=== PATIENT | female | born 1955 | race Asian ===

== ENCOUNTER 2017-06-07 20:06 | Emergency (ER) | payer MEDICARE, OTHER ==
[~2017-06-07] VITALS: Ht 165.1 cm; Wt 77.1 kg
[2017-06-07 20:15] VITALS: BP 153/73
[2017-06-07] MEDS ORDERED: ASPIRIN325 MG ORAL (20:26)
[2017-06-07] MEDS ORDERED: ARTIFICIAL TEAR15 ML BOTH EYES (20:26)
[2017-06-07] MEDS ORDERED: BACLOFEN10 MG ORAL (20:26)
[2017-06-07] MEDS ORDERED: SINEMET 25/1001 EA ORAL (20:26)
[2017-06-07] MEDS ORDERED: RISPERDAL1 MG PO (20:35)
[2017-06-07] MEDS ORDERED: MULTIVITAMINS1 EAC2 ORAL (20:35)
[2017-06-07] MEDS ORDERED: MILK OF MA2400 MG/10 ORAL (20:35)
[2017-06-07] MEDS ORDERED: VOLTAREN75 MG PO (20:35)
[2017-06-07] MEDS ORDERED: TESSALON PERLE100 MG ORAL (20:35)
[2017-06-07] MEDS ORDERED: LEXAPRO10 MG ORAL (20:35)
[2017-06-07] MEDS ORDERED: MELATONIN TR 51 EAC1 ORAL (20:35)
[2017-06-07] MEDS ORDERED: METFORMIN HCL500 M1 ORAL (20:35)
[2017-06-07] MEDS ORDERED: TRAMADOL HCL E100 MG ORAL (20:35)
[2017-06-07] MEDS ORDERED: LYRICA75 M1 ORAL (20:35)
[2017-06-07] MEDS ORDERED: DOCUSATE SODIU250 MG ORAL (20:35)
[2017-06-07] MEDS ORDERED: DICLOFENAC POTA50 MG PO (20:35)
[2017-06-07] MEDS ORDERED: BISACODYL5 MG ORAL (20:35)
[2017-06-07] MEDS ORDERED: FAMOTIDINE20 MG ORAL (20:35)
[2017-06-07] MEDS ORDERED: BENZTROPINE ME0.5 MG PO (20:35)
[2017-06-07] MEDS ORDERED: VALIUM5 MG ORAL (20:35)
[2017-06-07] MEDS ORDERED: Morphine Sulfate 4mg/ml Inj IM ONE (20:45)
--- NOTE | 2017-06-07 20:54 | Emergency Room Report ---
History of Present Illness General Chief Complaint: Head Injury Source: Patient, Medical Record Present Illness HPI 62-year-old female, history of schizophrenia, coming from prison, on aspirin, fell on Wednesday in bathroom. Patient did not have LOC. No nausea vomiting since the incident. Patient has ecchymosis to left forehead. Patient stating that she has been taking tramadol without relief. States that today pain is worse. Patient saying that she is allergic to Tylenol and morphine only can get dilaudid. Denies any nausea or vomiting, no weakness of her arms or legs, patient is an ambulatory, patient has been eating and drinking well Allergies: Coded Allergies: ACETAMINOPHEN (Verified Allergy, Unknown, 06/07/17) FLUPHENAZINE (Verified Allergy, Unknown, 06/07/17) HALOPERIDOL (Verified Allergy, Unknown, 06/07/17) IODINE (Verified Allergy, Unknown, 06/07/17) KETOROLAC (Verified Allergy, Unknown, 06/07/17) PENICILLINS (Verified Allergy, Unknown, 06/07/17) SULFAMETHOXAZOLE (Verified Allergy, Unknown, 06/07/17) Patient History Past Medical History: see triage record Past Surgical History: none Pertinent Family History: none Last Menstrual Period: na Now: No Reviewed Nursing Documentation: PMH: Agreed, PSxH: Agreed Nursing Documentation-PMH Hx COPD: Yes Hx Diabetes: Yes Review of Systems All Other Systems: negative except mentioned in HPI Physical Exam Vital Signs Date Time Temp Pulse Resp B/P (MAP) Pulse Ox O2 Delivery O2 Flow Rate FiO2 06/07/17 20:07 99.0 63 20 153/73 93 Room Air Sp02 EP Interpretation: reviewed, normal General Appearance: normal inspection, well appearing, no apparent distress, alert, GCS 15, non-toxic Head: normocephalic - Ecchymosis noted the left forehead, no hematoma Eyes: bilateral eye normal inspection, bilateral eye PERRL, bilateral eye EOMI ENT: normal ENT inspection, normal pharynx, normal voice, moist mucus membranes Neck: normal inspection, full range of motion, supple Respiratory: normal inspection, lungs clear, normal breath sounds, no respiratory distress, no retraction, no wheezing, speaking full sentences, chest symmetrical Cardiovascular #1: normal inspection, regular rate, rhythm, no edema, normal capillary refill Cardiovascular #2: 2+ radial (R), 2+ radial (L) Gastrointestinal: normal inspection, non tender, soft, non-distended, no guarding Musculoskeletal: normal inspection, back normal, normal range of motion, non- tender Neurologic: normal inspection, alert, oriented x3, responsive, plant maintenance technician III-XII nml as tested, motor strength/tone normal, sensory intact, normal gait, speech normal Psychiatric: normal inspection, judgement/insight normal, memory normal Skin: normal inspection, normal color, no rash, warm/dry, well hydrated, normal turgor Medical Decision Making Diagnostic Impression: Primary Impression: Closed head injury ER Course 62-year-old female with closed head injury, fall 3 days ago, now presenting with headache DDX: Likely headache related to fall, there was no LOC, will rule out intracranial hemorrhage although I am having low suspicion Plan: CT head and pain control ER course: Patient has remained stable during ED stay. Awake alert neurologically intact CT Head negative morphine IM given Disposition: Patient is to be discharged back to prison Patient is instructed to follow up with their primary care doctor within 5 days. Strict return precautions discussed with patient such as fever, chills, worsening/severe pain, nausea, vomiting, which may indicate severe illness. Patient verbalizes understanding and agrees with plan. Please note that this Emergency Department Report was dictated using [employer] technician technology software, occasionally this can lead to erroneous entry secondary to interpretation by the dictation equipment CT/MRI/US Diagnostic Results CT/MRI/US Diagnostic Results : Imaging Test Ordered: CT Head Impression Preliminary Findings Only See Final Report For Complete Findings CT HEAD: No acute intracranial process (STAT Rad) Radiologist: Adelina Carmen M.D. Last Vital Signs Date Time Temp Pulse Resp B/P (MAP) Pulse Ox O2 Delivery O2 Flow Rate FiO2 06/07/17 20:07 99.0 63 20 153/73 93 Room Air Disposition: [facility] Condition: Improved Angela Rubi M.D. Jun 07, 2017 20:54
[2017-06-07 22:00] VITALS: BP 148/81
[2017-06-08] VITALS: BP 139/76
[2017-06-08 01:20] VITALS: BP 146/75
--- NOTE | 2017-06-08 09:12 | Diagnostic Imaging Report ---
Indication: PAIN head pain Technique: Continuous helical CT scanning of the head was performed without intravenous contrast material. Axial and coronal 5 mm sections were generated. Radiation dose was minimized using automated exposure control Dose: Total Dose Length Product - DLP [address] Dose Index - CTDIvol(s) 70.38 mGy. Comparison: None Findings: The ventricular system is normal in size and configuration. There is no shift of midline structures. No abnormal extra-axial fluid collections are noted. There is no evidence of intracerebral bleeding. No other abnormal high or low density areas are noted within the brain. The mastoids and sinuses are clear. The calvarium is intact. The orbits are unremarkable. Impression: Normal CT scan of the head without contrast material. This agrees with the preliminary interpretation provided overnight by [facility] teleradiology service. The CT scanner at [facility] is accredited by the [employer] and the scans are performed using protocols designed to limit radiation exposure to as low as reasonably achievable to attain images of sufficient resolution adequate for diagnostic evaluation.
== END 2017-06-08 01:20 ==
LOC: EDBD 20:06 → EMR 20:50
DX: S09.8XXA Other specified injuries of head, initial encounter (principal); S00.83XA Contusion of other part of head, initial encounter; W19.XXXA Unspecified fall, initial encounter; Y92.121 Bathroom in nursing home as the place of occurrence of the external cause; E11.9 Type 2 diabetes mellitus without complications; J44.9 Chronic obstructive pulmonary disease, unspecified; Z88.2 Allergy status to sulfonamides; Z88.0 Allergy status to penicillin; Z88.6 Allergy status to analgesic agent
CPT/HCPCS: 70450; 96372; 99284; J2270

== ENCOUNTER 2017-07-02 11:55 | Inpatient (IN) | payer MEDICARE, OTHER ==
[~2017-07-02] VITALS: Ht 165.1 cm; Wt 76.2 kg
[~2017-07-02 11:55] MED LIST: ARTIFICIAL TEAR15 ML BOTH EYES; ASPIRIN325 MG ORAL; BACLOFEN10 MG ORAL; BENZTROPINE ME0.5 MG PO; BISACODYL5 MG ORAL; DICLOFENAC POTA50 MG PO; DOCUSATE SODIU250 MG ORAL; FAMOTIDINE20 MG ORAL; LEXAPRO10 MG ORAL; LYRICA75 M1 ORAL; MELATONIN TR 51 EAC1 ORAL; METFORMIN HCL500 M1 ORAL; MILK OF MA2400 MG/10 ORAL; MULTIVITAMINS1 EAC2 ORAL; RISPERDAL1 MG PO; SINEMET 25/1001 EA ORAL; TESSALON PERLE100 MG ORAL; TRAMADOL HCL E100 MG ORAL; VALIUM5 MG ORAL; VOLTAREN75 MG PO
[2017-07-02] MEDS ORDERED: LIORESAL20 MG ORAL (12:08)
[2017-07-02] MEDS ORDERED: DICLOFENAC POTA50 MG PO (12:11)
[2017-07-02] MEDS ORDERED: LEXAPRO5 MG ORAL (12:11)
[2017-07-02 12:15] VITALS: BP 130/62
[2017-07-02] MEDS ORDERED: LYRICA100 MG ORAL (12:17)
[2017-07-02] MEDS ORDERED: Sodium Chloride 500ML 500 ML IV ONE (12:17)
[2017-07-02] MEDS ORDERED: ALUM-MAG HYDRO360 ML PO (12:17)
[2017-07-02] MEDS ORDERED: SIMETHICON40 MG/0.2 PO (12:24)
[2017-07-02] MEDS ORDERED: MYLERAN2 MG PO (12:24)
[2017-07-02] MEDS ORDERED: VALIUM5 MG ORAL (12:27)
[2017-07-02] MEDS ORDERED: TRAMADOL HCL100 M2 ORAL (12:27)
[2017-07-02] MEDS ORDERED: Morphine Sulfate 4mg/ml Inj IVP ONE (12:30)
[2017-07-02 12:48] LABS: APPEARANCE,URINE CLEAR; KETONES,URINE NEGATIVE (NEGATIVE); LEUKOCYTE ESTERASE ,URINE NEGATIVE (NEGATIVE); NITRITE,URINE NEGATIVE (NEGATIVE); PH,URINE 6.5 (4.5-8.0); PROTEIN,URINE NEGATIVE (NEGATIVE); UROBILINOGEN,URINE NORMAL MG/DL (0.0-1.0)
[2017-07-02 12:49] LABS: MEAN CORPUSCULAR HEMOGLOBIN 30.3 PG (27.0-31.0); MEAN CORPUSCULAR HGB CONC 33.2 G/DL (32.0-36.0); MEAN CORPUSCULAR VOLUME 91 FL (80-99); MEAN PLATELET VOLUME 8.1 FL (6.5-10.1); PLATELET COUNT 289 K/UL (150-450); RED BLOOD COUNT 4.52 M/UL (4.20-5.40); RED CELL DISTRIBUTION WIDTH 13.6 % (11.6-14.8); WHITE BLOOD COUNT 13.3 K/UL (4.8-10.8)
[2017-07-02 12:59] LABS: ANION GAP 6 mmol/L (5-15); CALCIUM 9.8 MG/DL (8.5-10.1); CARBON DIOXIDE 28 MMOL/L (21-32); CHLORIDE 94 MMOL/L (98-107); CREATININE 0.6 MG/DL (0.55-1.30); GLOMERULAR FILTRATION RATE > 60 mL/min (>60); POTASSIUM 3.9 MMOL/L (3.5-5.1); SODIUM 128 MMOL/L (136-145)
[2017-07-02 13:10] LABS: BACTERIA,URINE OCCASIONAL /HPF; SQUAMOUS EPITHELIAL CELL,UR FEW /LPF (NONE/OCC); WBC,URINE 0-2 /HPF (0 - 2)
[2017-07-02 13:13] LABS: BAND NEUTROPHILS % (MANUAL) 0 % (0-8); BASOPHILS % (MANUAL) 0 % (0-2); EOSINOPHILS % (MANUAL) 2 % (0-3); LYMPHOCYTES % (MANUAL) 12 % (20-45); NEUTROPHILS % (MANUAL) 84 % (45-75); PLATELET ESTIMATE ADEQUATE; TOTAL CELLS COUNTED 100
[2017-07-02 13:14] LABS: ALANINE AMINOTRANSFERASE 8 U/L (12-78); ALBUMIN/GLOBULIN RATIO 1.4 (1.0-2.7); ASPARTATE AMINO TRANSFERASE 12 U/L (15-37); CKMB < 0.5 NG/ML (0.0-3.6); PLATELET MORPHOLOGY NORMAL; TOTAL PROTEIN 6.6 G/DL (6.4-8.2)
[2017-07-02] MEDS ORDERED: DiphenhydrAMINE 50mg/ml Inj IVP ONE (13:15)
--- NOTE | 2017-07-02 13:43 | Diagnostic Imaging Report ---
Indication: Altered mental status Technique: Continuous helical CT scanning of the head was performed without intravenous contrast material. Axial and coronal 5 mm sections were generated. Radiation dose was minimized using automated exposure control Dose: Total Dose Length Product - DLP [address] Dose Index - CTDIvol(s) 70.5 mGy. Comparison: 06/07/17 Findings: The ventricular system is normal in size and configuration. There is no shift of midline structures. No abnormal extra-axial fluid collections are noted. There is no evidence of intracerebral bleeding. No other abnormal high or low density areas are noted within the brain. The mastoids and sinuses are clear. No depressed calvarial fracture. Imaged portions of the orbits are grossly unremarkable. Impression: No evidence of acute intracranial hemorrhage, mass effect or cortical edema. MRI may be obtained for more sensitive evaluation as clinically indicated. The CT scanner at [facility] is accredited by the [employer] and the scans are performed using protocols designed to limit radiation exposure to as low as reasonably achievable to attain images of sufficient resolution adequate for diagnostic evaluation.
--- NOTE | 2017-07-02 14:20 | Emergency Room Report ---
History of Present Illness General Chief Complaint: Generalized Weakness Source: Patient, PMD Present Illness HPI 62-year-old female presents ED for evaluation. Patient coming from [facility]. Per nursing patient has been not eating for several days, has lost weight is feeling weak. Patient states she has generalized pain all over secondary to fall yesterday. Questionable LOC. Pain is throbbing, 8/10, nonradiating. Denies fevers or chills. Denies chest pain shortness of breath. No other aggravating relieving factors. Denies any other associated symptoms Allergies: Coded Allergies: ACETAMINOPHEN (Verified Allergy, Unknown, 06/07/17) FLUPHENAZINE (Verified Allergy, Unknown, 06/07/17) HALOPERIDOL (Verified Allergy, Unknown, 06/07/17) IODINE (Verified Allergy, Unknown, 06/07/17) KETOROLAC (Verified Allergy, Unknown, 06/07/17) PENICILLINS (Verified Allergy, Unknown, 06/07/17) SULFAMETHOXAZOLE (Verified Allergy, Unknown, 06/07/17) Patient History Past Medical History: DM, COPD, psych hx Past Surgical History: none Pertinent Family History: none Social History: Denies: smoking, alcohol use, drug use Now: No Immunizations: UTD Reviewed Nursing Documentation: PMH: Agreed, PSxH: Agreed Nursing Documentation-PMH Hx COPD: Yes Hx Diabetes: Yes Hx Dialysis: No History Of Psychiatric Problem: Yes - schizo,depressive disoder Review of Systems All Other Systems: negative except mentioned in HPI Physical Exam Vital Signs Date Time Temp Pulse Resp B/P (MAP) Pulse Ox O2 Delivery O2 Flow Rate FiO2 07/02/17 11:59 98.1 92 16 130/80 98 Room Air Sp02 EP Interpretation: reviewed, normal General Appearance: no apparent distress, alert, GCS 15, non-toxic Head: normocephalic, atraumatic Eyes: bilateral eye normal inspection, bilateral eye PERRL ENT: hearing grossly normal, normal pharynx, no angioedema, normal voice Neck: full range of motion, supple/symm/no masses Respiratory: chest non-tender, lungs clear, normal breath sounds, speaking full sentences Cardiovascular #1: regular rate, rhythm, no edema Cardiovascular #2: 2+ carotid (R), 2+ carotid (L), 2+ radial (R), 2+ radial (L) , 2+ dorsalis pedis (R), 2+ dorsalis pedis (L) Gastrointestinal: normal bowel sounds, non tender, soft, non-distended, no guarding, no rebound Rectal: deferred Genitourinary: normal inspection, no CVA tenderness Musculoskeletal: back normal, gait/station normal, normal range of motion, non- tender Neurologic: alert, oriented x3, responsive, motor strength/tone normal, sensory intact, speech normal Psychiatric: judgement/insight normal, memory normal, mood/affect normal, no suicidal/homicidal ideation Reflexes: 3+ bicep (R), 3+ bicep (L), 3+ tricep (R), 3+ tricep (L), 3+ knee (R) , 3+ knee (L) Skin: normal color, no rash, warm/dry, well hydrated Lymphatic: no adenopathy Medical Decision Making Diagnostic Impression: Primary Impression: Episode of generalized weakness Additional Impressions: Dehydration FTT (failure to thrive) in adult ER Course Hospital Course 62-year-old female presenting to ED with generalized weakness, unable to care for herself Differential diagnoses include: Pneumonia, UTI, sepsis, dehydration, LA/ unstable angina, failure to thrive Clinical course Patient placed on stretcher. On athletic monitor. After initial history and physical, I ordered labs, IV fluids, EKG, chest x-ray, blood cultures, UA. Labs - no leukocytosis, hb/hct stable, Na 128, trop negative EKG - NSR, RBBB no acute ischemic changes interpreted by me CXR - no acute process CT Head unremarkable Case discussed with Dr Harris and they agreed to admit patient to their service for further care and support I feel this is a highly complex case requiring extensive working including EKG/ Rhythm strip, Xray/CT/US, Blood/urine lab work, repeat exams while in ED, and administration of strong opiates/narcotics for pain control, admission to hospital or close patient follow up. Diagnosis - failure to thrive, weakness, dehydration Patient admitted to floor in serious condition Labs Test 07/02/17 12:25 White Blood Count 13.3 K/UL (4.8-10.8) Red Blood Count 4.52 M/UL (4.20-5.40) Hemoglobin 13.7 G/DL (12.0-16.0) Hematocrit 41.2 % (37.0-47.0) Mean Corpuscular Volume 91 FL (80-99) Mean Corpuscular Hemoglobin 30.3 PG (27.0-31.0) Mean Corpuscular Hemoglobin Concent 33.2 G/DL (32.0-36.0) Red Cell Distribution Width 13.6 % (11.6-14.8) Platelet Count 289 K/UL (150-450) Mean Platelet Volume 8.1 FL (6.5-10.1) Neutrophils (%) (Auto) % (45.0-75.0) Lymphocytes (%) (Auto) % (20.0-45.0) Monocytes (%) (Auto) % (1.0-10.0) Eosinophils (%) (Auto) % (0.0-3.0) Basophils (%) (Auto) % (0.0-2.0) Differential Total Cells Counted 100 Neutrophils % (Manual) 84 % (45-75) Lymphocytes % (Manual) 12 % (20-45) Monocytes % (Manual) 2 % (1-10) Eosinophils % (Manual) 2 % (0-3) Basophils % (Manual) 0 % (0-2) Band Neutrophils 0 % (0-8) Platelet Estimate Adequate Platelet Morphology Normal Red Blood Cell Morphology Normal Urine Color Pale yellow Urine Appearance Clear Urine pH 6.5 (4.5-8.0) Urine Specific [place] 1.010 (1.005-1.035) Urine Protein Negative (NEGATIVE) Urine Glucose (UA) Negative (NEGATIVE) Urine Ketones Negative (NEGATIVE) Urine Occult Blood 1+ (NEGATIVE) Urine Nitrite Negative (NEGATIVE) Urine Bilirubin Negative (NEGATIVE) Urine Urobilinogen Normal MG/DL (0.0-1.0) Urine Leukocyte Esterase Negative (NEGATIVE) Urine RBC 2-4 /HPF (0 - 2) Urine WBC 0-2 /HPF (0 - 2) Urine Squamous Epithelial Cells Few /LPF (NONE/OCC) Urine Bacteria Occasional /HPF (NONE) Sodium Level 128 MMOL/L (136-145) Potassium Level 3.9 MMOL/L (3.5-5.1) Chloride Level 94 MMOL/L (98-107) Carbon Dioxide Level 28 MMOL/L (21-32) Anion Gap 6 mmol/L (5-15) Blood Urea Nitrogen 6 mg/dL (7-18) Creatinine 0.6 MG/DL (0.55-1.30) Estimat Glomerular Filtration Rate > 60 mL/min (>60) Glucose Level 122 MG/DL (74-106) Calcium Level 9.8 MG/DL (8.5-10.1) Total Bilirubin 0.3 MG/DL (0.2-1.0) Aspartate Amino Transf (AST/SGOT) 12 U/L (15-37) Alanine Aminotransferase (ALT/SGPT) 8 U/L (12-78) Alkaline Phosphatase 47 U/L (46-116) Total Creatine Kinase 54 U/L (26-308) Creatine Kinase MB < 0.5 NG/ML (0.0-3.6) Creatine Kinase MB Relative Index Troponin I 0.007 ng/mL (0.000-0.056) Total Protein 6.6 G/DL (6.4-8.2) Albumin 3.9 G/DL (3.4-5.0) Globulin 2.7 g/dL Albumin/Globulin Ratio 1.4 (1.0-2.7) EKG Diagnostic Results Rate: normal Rhythm: NSR ST Segments: other - RBBB ASA given to the pt in ED: No Rhythm Strip Diag. Results EP Interpretation: yes Rhythm: NSR, no PVC's, no ectopy Chest X-Ray Diagnostic Results Chest X-Ray Diagnostic Results : Chest X-Ray Ordered: Yes # of Views/Limited/Complete: 1 View Indication: Other - weakness EP Interpretation: Yes Interpretation: no consolidation, no effusion, no pneumothorax, no acute cardiopulmonary disease Impression: No acute disease Electronically Signed by: Electronically signed by Jonathan Johnson MD CT/MRI/US Diagnostic Results CT/MRI/US Diagnostic Results : Imaging Test Ordered: CT head Impression no acute process Last Vital Signs Date Time Temp Pulse Resp B/P (MAP) Pulse Ox O2 Delivery O2 Flow Rate FiO2 07/02/17 12:15 96.8 72 18 130/62 99 Room Air Status: improved Disposition: ADMITTED INPATIENT Condition: Serious Referrals: CINTHIA APPIAH M.D. (PCP) JONATHAN JOHNSON M.D. Jul 02, 2017 14:20
--- NOTE | 2017-07-02 15:30 | History and Physical ---
History of Present Illness General Date patient seen: Jul 02, 2017 Reason for Hospitalization: Generalized Weakness Present Illness HPI 62-year-old female presents ED for evaluation of not eating for several days, has lost weight is feeling weak. Patient states she has generalized pain all over secondary to fall yesterday. Questionable LOC. Pain is throbbing, 8/10, nonradiating. Denies fevers or chills. Denies chest pain shortness of breath. No other aggravating relieving factors. Denies any other associated symptoms. She has issues with her teeth. c/o dysphagia as well. Allergies: Coded Allergies: ACETAMINOPHEN (Verified Allergy, Unknown, 06/07/17) FLUPHENAZINE (Verified Allergy, Unknown, 06/07/17) HALOPERIDOL (Verified Allergy, Unknown, 06/07/17) IODINE (Verified Allergy, Unknown, 06/07/17) KETOROLAC (Verified Allergy, Unknown, 06/07/17) PENICILLINS (Verified Allergy, Unknown, 06/07/17) SULFAMETHOXAZOLE (Verified Allergy, Unknown, 06/07/17) Medication History Scheduled Baclofen (Baclofen), 10 MG ORAL THREE TIMES A DAY, (Reported) Benzonatate* (Tessalon Perle*), 100 MG ORAL PRN, (Reported) Benztropine Mesylate* (Cogentin*), 1 MG PO BID, (Reported) Bisacodyl* (Dulcolax*), 15 MG ORAL DAILY, (Reported) Diazepam* (Valium*), 5 MG ORAL BID, (Reported) Diclofenac Potassium (Diclofenac Potassium), 50 MG PO THREE TIMES A DAY, ( Reported) Diclofenac Potassium (Diclofenac Potassium), 50 MG PO THREE TIMES A DAY, ( Reported) Docusate Sodium* (Docusate Sodium*), 250 MG ORAL DAILY, (Reported) Escitalopram Oxalate (Lexapro), 5 MG ORAL DAILY, (Reported) Escitalopram Oxalate* (Lexapro*), 5 MG ORAL DAILY, (Reported) Famotidine (Famotidine), 20 MG ORAL DAILY, (Reported) Levodopa/Carbidopa (Carbidopa-Levodopa 25-100 Tab), 1 TAB ORAL TWICE A DAY, ( Reported) Mag Hydrox/Al Hydrox/Simeth (Alum-Mag Hydroxide-Simeth Liq), 30 ML PO EVERY 4 HOURS, (Reported) Magnesium Hydroxide* (Milk Of Magnesia*), 30 ML ORAL DAILY, (Reported) Melatonin (Melatonin Tr 5 Mg Tablet), 1 TAB ORAL BEDTIME, (Reported) Metformin Hcl* (Metformin Hcl*), 500 MG ORAL TWICE A DAY, (Reported) Multivitamins* (Multivitamins*), 1 TAB ORAL DAILY, (Reported) Pregabalin (Lyrica), 100 MG ORAL THREE TIMES A DAY, (Reported) Pregabalin* (Lyrica*), 75 MG ORAL THREE TIMES A DAY, (Reported) Risperidone* (Risperdal*), 1 MG PO DAILY, (Reported) Simethicone (Simethicone), 80 MG PO EVERY 12 HOURS, (Reported) Tramadol Hcl (Tramadol Hcl Er), 100 MG ORAL DAILY, (Reported) Scheduled PRN Aspirin* (Aspirin*), 325 MG ORAL PRN PRN for For Pain, (Reported) Diazepam* (Valium*), 5 MG ORAL TWICE A DAY PRN for ANXIETY, (Reported) Tramadol Hcl (Tramadol Hcl), 100 MG ORAL EVERY 8 HOURS PRN for Breakthrough Pain , (Reported) Miscellaneous Medications Busulfan (Myleran), 30 ML PO, (Reported) Dextran 70/Hypromellose (Artificial Tears Eye Drops*), 1 DROP BOTH EYES, ( Reported) Diclofenac Sodium (Voltaren), Unknown Dose PO, (Reported) Discontinued Medications Baclofen* (Baclofen*), 10 MG ORAL TWICE A DAY, (Reported) Discontinued Reason: Prescription changed Patient History Healthcare decision maker Resuscitation status Advanced Directive on File Past Medical/Surgical History Past Medical/Surgical History: (1) Diabetes (2) Arthritis Review of Systems All Other Systems: negative except mentioned in HPI Physical Exam General Appearance: WD/WN, no apparent distress Lines, tubes and drains: peripheral, central line HEENT: normocephalic, atraumatic Neck: non-tender, normal alignment, supple Respiratory/Chest: chest wall non-tender, lungs clear Breasts: no masses Cardiovascular/Chest: normal rate Abdomen: normal bowel sounds, non tender Genitourinary/Rectal: normal genital exam Skin Exam: normal pigmentation Neurologic: piece marker small arms II-XII grossly normal Last 24 Hour Vital Signs Date Time Temp Pulse Resp B/P (MAP) Pulse Ox O2 Delivery O2 Flow Rate FiO2 07/02/17 14:26 74 17 146/85 99 Room Air 07/02/17 12:15 96.8 72 18 130/62 99 Room Air 07/02/17 11:59 98.1 92 16 130/80 98 Room Air Intake and Output 07/02/17 07/03/17 19:00 07:00 Intake Total 500 ml Balance 500 ml Intake IV Total 500 ml # Voids 1 Laboratory Tests Test 07/02/17 12:25 White Blood Count 13.3 K/UL (4.8-10.8) H Red Blood Count 4.52 M/UL (4.20-5.40) Hemoglobin 13.7 G/DL (12.0-16.0) Hematocrit 41.2 % (37.0-47.0) Mean Corpuscular Volume 91 FL (80-99) Mean Corpuscular Hemoglobin 30.3 PG (27.0-31.0) Mean Corpuscular Hemoglobin Concent 33.2 G/DL (32.0-36.0) Red Cell Distribution Width 13.6 % (11.6-14.8) Platelet Count 289 K/UL (150-450) Mean Platelet Volume 8.1 FL (6.5-10.1) Neutrophils (%) (Auto) % (45.0-75.0) Lymphocytes (%) (Auto) % (20.0-45.0) Monocytes (%) (Auto) % (1.0-10.0) Eosinophils (%) (Auto) % (0.0-3.0) Basophils (%) (Auto) % (0.0-2.0) Differential Total Cells Counted 100 Neutrophils % (Manual) 84 % (45-75) H Lymphocytes % (Manual) 12 % (20-45) L Monocytes % (Manual) 2 % (1-10) Eosinophils % (Manual) 2 % (0-3) Basophils % (Manual) 0 % (0-2) Band Neutrophils 0 % (0-8) Platelet Estimate Adequate Platelet Morphology Normal Red Blood Cell Morphology Normal Urine Color Pale yellow Urine Appearance Clear Urine pH 6.5 (4.5-8.0) Urine Specific [place] 1.010 (1.005-1.035) Urine Protein Negative (NEGATIVE) Urine Glucose (UA) Negative (NEGATIVE) Urine Ketones Negative (NEGATIVE) Urine Occult Blood 1+ (NEGATIVE) H Urine Nitrite Negative (NEGATIVE) Urine Bilirubin Negative (NEGATIVE) Urine Urobilinogen Normal MG/DL (0.0-1.0) Urine Leukocyte Esterase Negative (NEGATIVE) Urine RBC 2-4 /HPF (0 - 2) H Urine WBC 0-2 /HPF (0 - 2) Urine Squamous Epithelial Cells Few /LPF (NONE/OCC) Urine Bacteria Occasional /HPF (NONE) Sodium Level 128 MMOL/L (136-145) L Potassium Level 3.9 MMOL/L (3.5-5.1) Chloride Level 94 MMOL/L (98-107) L Carbon Dioxide Level 28 MMOL/L (21-32) Anion Gap 6 mmol/L (5-15) Blood Urea Nitrogen 6 mg/dL (7-18) L Creatinine 0.6 MG/DL (0.55-1.30) Estimat Glomerular Filtration Rate > 60 mL/min (>60) Glucose Level 122 MG/DL (74-106) H Calcium Level 9.8 MG/DL (8.5-10.1) Total Bilirubin 0.3 MG/DL (0.2-1.0) Aspartate Amino Transf (AST/SGOT) 12 U/L (15-37) L Alanine Aminotransferase (ALT/SGPT) 8 U/L (12-78) L Alkaline Phosphatase 47 U/L (46-116) Total Creatine Kinase 54 U/L (26-308) Creatine Kinase MB < 0.5 NG/ML (0.0-3.6) Creatine Kinase MB Relative Index Troponin I 0.007 ng/mL (0.000-0.056) Total Protein 6.6 G/DL (6.4-8.2) Albumin 3.9 G/DL (3.4-5.0) Globulin 2.7 g/dL Albumin/Globulin Ratio 1.4 (1.0-2.7) Height (Feet): 5 Height (Inches): 5.00 Weight (Pounds): 168 Medications Current Medications Medications (Trade) Dose Ordered Sig/Olu Route PRN Reason Start Time Stop Time Status Last Admin Dose Admin Baclofen (Lioresal) 10 mg THREE TIMES A DAY ORAL 07/02/17 18:00 08/01/17 17:59 Carbidopa/Levodopa (Sinemet 25/100) 1 ea TWICE A DAY ORAL 07/02/17 18:00 08/01/17 17:59 UNV Diazepam (Valium) 5 mg BID ORAL 07/02/17 18:00 07/09/17 17:59 Escitalopram Oxalate (Lexapro) 5 mg DAILY ORAL 07/03/17 09:00 08/02/17 08:59 UNV Pregabalin (Lyrica) 100 mg THREE TIMES A DAY ORAL 07/02/17 18:00 08/01/17 17:59 UNV Risperidone (RisperDAL) 1 mg DAILY ORAL 07/03/17 09:00 08/02/17 08:59 UNV Assessment/Plan Problem List: (1) Dysphagia ICD Codes: R13.10 - Dysphagia, unspecified SNOMED: 20003028, 720395706 (2) Weakness ICD Codes: R53.1 - Weakness SNOMED: 88926590 (3) Diabetes ICD Codes: E11.9 - Type 2 diabetes mellitus without complications SNOMED: 44902647 (4) Arthritis ICD Codes: M19.90 - Unspecified osteoarthritis, unspecified site SNOMED: 7467302 (5) Episode of generalized weakness ICD Codes: R53.1 - Weakness SNOMED: 93169619 Assessment/Plan swallow evaluation GI evaluation symptomatic treatment CHINO HARTMAN Jul 02, 2017 15:30
[2017-07-02 16:00] VITALS: BP 140/66
[2017-07-02] MEDS: NovoLOG Insulin Flexpen SUBQ SCH ×2 (16:29→21:58)
[2017-07-02] MEDS ORDERED: Zolpidem 5mg tab ORAL PRN (16:30)
[2017-07-02] MEDS ORDERED: LORazepam Inj 2mg/ml 1ml IV PRN (16:30)
[2017-07-02] MEDS ORDERED: Miralax 17gm pkt ORAL PRN (16:30)
[2017-07-02] MEDS ORDERED: Mylanta II UD 30ml ORAL PRN (16:30)
[2017-07-02] MEDS: DiphenhydrAMINE 50mg/ml Inj IVP PRN ×2 (16:41→22:09)
[2017-07-02] MEDS: Morphine Sulfate 2mg/ml Inj IVP PRN ×2 (16:42→22:09)
--- NOTE | 2017-07-02 17:19 | GI Initial Consult Note ---
History of Present Illness General Date patient seen: Jul 02, 2017 Time patient seen: 17:11 Reason for Hospitalization: Generalized Weakness Referring physician: CHINO GARCIA Reason for Consultation: FTT/DIARRHEA Present Illness HPI 62-year-old female presents ED for evaluation. Patient coming from [facility]. Per nursing patient has been not eating for several days, has lost weight is feeling weak. Patient states she has generalized pain all over secondary to fall yesterday. Questionable LOC. Pain is throbbing, 8/10, nonradiating. Denies fevers or chills. Denies chest pain shortness of breath. No other aggravating relieving factors. Denies any other associated symptoms GI consulted FTT and c/o of diarrhea. HPI as noted above. Pt seen on floor, awake A&Ox4 NAD with no active s/sx of N/V/D. States her diarrhea has resolved at this time. C/o of abdominal gas pain with epigastric tenderness and nausea without vomiting and Jaw discomfort. Noted to have eaten 75% of her dinner. States she's had a colonoscopy 5+ years ago with polypectomy. She presents today with leukocytosis. Home Meds Reported Medications Diazepam* (VALIUM*) 5 Mg Tablet, 5 MG ORAL TWICE A DAY Y for ANXIETY, #30 TAB 0 Refills 07/02/17 Tramadol Hcl (TRAMADOL HCL) 100 Mg Tab.er.24h, 100 MG ORAL EVERY 8 HOURS Y for Breakthrough Pain, TAB 07/02/17 Simethicone (SIMETHICONE) 40 Mg/0.6 Ml Drops.susp, 80 MG PO EVERY 12 HOURS 07/02/17 Busulfan (MYLERAN) 2 Mg Tablet, 30 ML PO, TAB 07/02/17 Mag Hydrox/Al Hydrox/Simeth (ALUM-MAG HYDROXIDE-SIMETH LIQ) 360 Ml Oral.susp, 30 ML PO EVERY 4 HOURS, ML 07/02/17 Pregabalin (LYRICA) 100 Mg Capsule, 100 MG ORAL THREE TIMES A DAY, CAP 07/02/17 Escitalopram Oxalate (LEXAPRO) 5 Mg Tablet, 5 MG ORAL DAILY, TAB 07/02/17 Diclofenac Potassium (DICLOFENAC POTASSIUM) 50 Mg Tablet, 50 MG PO THREE TIMES A DAY, TAB 07/02/17 Baclofen (Baclofen) 20 Mg Tablet, 10 MG ORAL THREE TIMES A DAY, TAB 07/02/17 Diclofenac Sodium (VOLTAREN) 75 Mg Tablet.dr, PO, TAB 06/07/17 Diazepam* (VALIUM*) 5 Mg Tablet, 5 MG ORAL BID, #30 TAB 0 Refills 06/07/17 Tramadol Hcl (TRAMADOL HCL ER) 100 Mg Tab.er.24h, 100 MG ORAL DAILY, TAB 06/07/17 Benzonatate* (TESSALON PERLE*) 100 Mg Capsule, 100 MG ORAL PRN, PERLE 06/07/17 Risperidone* (RISPERDAL*) 1 Mg Tablet, 1 MG PO DAILY, TAB 06/07/17 Multivitamins* (MULTIVITAMINS*) 1 Each Tablet, 1 TAB ORAL DAILY, TAB 0 Refills 06/07/17 Magnesium Hydroxide* (MILK OF MAGNESIA*) 2,400 Mg/10 Ml Oral.susp, 30 ML ORAL DAILY, ML 06/07/17 Metformin Hcl* (METFORMIN HCL*) 500 Mg Tablet, 500 MG ORAL TWICE A DAY, TAB 06/07/17 Melatonin (MELATONIN TR 5 MG TABLET) 1 Each Tablet.er, 1 TAB ORAL BEDTIME, TAB 06/07/17 Pregabalin* (LYRICA*) 75 Mg Capsule, 75 MG ORAL THREE TIMES A DAY, CAP 06/07/17 Escitalopram Oxalate* (LEXAPRO*) 10 Mg Tablet, 5 MG ORAL DAILY, TAB 06/07/17 Famotidine (FAMOTIDINE) 20 Mg Tablet, 20 MG ORAL DAILY, #30 TAB 0 Refills 06/07/17 Bisacodyl* (DULCOLAX*) 5 Mg Tablet.dr, 15 MG ORAL DAILY, #10 TAB 0 Refills 06/07/17 Docusate Sodium* (DOCUSATE SODIUM*) 250 Mg Capsule, 250 MG ORAL DAILY, CAP 06/07/17 Diclofenac Potassium (DICLOFENAC POTASSIUM) 50 Mg Tablet, 50 MG PO THREE TIMES A DAY, TAB 06/07/17 Benztropine Mesylate* (COGENTIN*) 0.5 Mg Tablet, 1 MG PO BID, TAB 06/07/17 Levodopa/Carbidopa (Carbidopa-Levodopa 25-100 Tab) 1 Each Tablet, 1 TAB ORAL TWICE A DAY, TAB 06/07/17 Aspirin* (ASPIRIN*) 325 Mg Tablet, 325 MG ORAL PRN Y for For Pain, TAB 06/07/17 Dextran 70/Hypromellose (ARTIFICIAL TEARS EYE DROPS*) 15 Ml Drops, 1 DROP BOTH EYES, #15 ML 0 Refills 06/07/17 Discontinued Reported Medications Baclofen* (BACLOFEN*) 10 Mg Tablet, 10 MG ORAL TWICE A DAY, TAB 06/07/17 Med list reviewed/reconciled: Yes Allergies: Coded Allergies: ACETAMINOPHEN (Verified Allergy, Unknown, 06/07/17) FLUPHENAZINE (Verified Allergy, Unknown, 06/07/17) HALOPERIDOL (Verified Allergy, Unknown, 06/07/17) IODINE (Verified Allergy, Unknown, 06/07/17) KETOROLAC (Verified Allergy, Unknown, 06/07/17) PENICILLINS (Verified Allergy, Unknown, 06/07/17) SULFAMETHOXAZOLE (Verified Allergy, Unknown, 06/07/17) Patient History History Provided By: Patient, Medical Record PMH Narrative Past Medical History: DM, COPD, psych hx Past Surgical History: none Pertinent Family History: none Social History: Denies: smoking, alcohol use, drug use Now: No Immunizations: UTD Reviewed Nursing Documentation: PMH: Agreed, PSxH: Agreed Nursing Documentation-PMH Hx COPD: Yes Hx Diabetes: Yes Hx Dialysis: No History Of Psychiatric Problem: Yes - schizo,depressive disorder Social History: Denies: smoking, alcohol use, drug use, other Review of Systems All Other Systems: negative except mentioned in HPI Physical Exam Vital Signs Date Time Temp Pulse Resp B/P (MAP) Pulse Ox O2 Delivery O2 Flow Rate FiO2 07/02/17 11:59 98.1 92 16 130/80 98 Room Air Sp02 EP Interpretation: reviewed, normal Labs Laboratory Tests Test 07/02/17 12:25 White Blood Count 13.3 K/UL (4.8-10.8) H Red Blood Count 4.52 M/UL (4.20-5.40) Hemoglobin 13.7 G/DL (12.0-16.0) Hematocrit 41.2 % (37.0-47.0) Mean Corpuscular Volume 91 FL (80-99) Mean Corpuscular Hemoglobin 30.3 PG (27.0-31.0) Mean Corpuscular Hemoglobin Concent 33.2 G/DL (32.0-36.0) Red Cell Distribution Width 13.6 % (11.6-14.8) Platelet Count 289 K/UL (150-450) Mean Platelet Volume 8.1 FL (6.5-10.1) Neutrophils (%) (Auto) % (45.0-75.0) Lymphocytes (%) (Auto) % (20.0-45.0) Monocytes (%) (Auto) % (1.0-10.0) Eosinophils (%) (Auto) % (0.0-3.0) Basophils (%) (Auto) % (0.0-2.0) Differential Total Cells Counted 100 Neutrophils % (Manual) 84 % (45-75) H Lymphocytes % (Manual) 12 % (20-45) L Monocytes % (Manual) 2 % (1-10) Eosinophils % (Manual) 2 % (0-3) Basophils % (Manual) 0 % (0-2) Band Neutrophils 0 % (0-8) Platelet Estimate Adequate Platelet Morphology Normal Red Blood Cell Morphology Normal Urine Color Pale yellow Urine Appearance Clear Urine pH 6.5 (4.5-8.0) Urine Specific [place] 1.010 (1.005-1.035) Urine Protein Negative (NEGATIVE) Urine Glucose (UA) Negative (NEGATIVE) Urine Ketones Negative (NEGATIVE) Urine Occult Blood 1+ (NEGATIVE) H Urine Nitrite Negative (NEGATIVE) Urine Bilirubin Negative (NEGATIVE) Urine Urobilinogen Normal MG/DL (0.0-1.0) Urine Leukocyte Esterase Negative (NEGATIVE) Urine RBC 2-4 /HPF (0 - 2) H Urine WBC 0-2 /HPF (0 - 2) Urine Squamous Epithelial Cells Few /LPF (NONE/OCC) Urine Bacteria Occasional /HPF (NONE) Sodium Level 128 MMOL/L (136-145) L Potassium Level 3.9 MMOL/L (3.5-5.1) Chloride Level 94 MMOL/L (98-107) L Carbon Dioxide Level 28 MMOL/L (21-32) Anion Gap 6 mmol/L (5-15) Blood Urea Nitrogen 6 mg/dL (7-18) L Creatinine 0.6 MG/DL (0.55-1.30) Estimat Glomerular Filtration Rate > 60 mL/min (>60) Glucose Level 122 MG/DL (74-106) H Calcium Level 9.8 MG/DL (8.5-10.1) Total Bilirubin 0.3 MG/DL (0.2-1.0) Aspartate Amino Transf (AST/SGOT) 12 U/L (15-37) L Alanine Aminotransferase (ALT/SGPT) 8 U/L (12-78) L Alkaline Phosphatase 47 U/L (46-116) Total Creatine Kinase 54 U/L (26-308) Creatine Kinase MB < 0.5 NG/ML (0.0-3.6) Creatine Kinase MB Relative Index Troponin I 0.007 ng/mL (0.000-0.056) Total Protein 6.6 G/DL (6.4-8.2) Albumin 3.9 G/DL (3.4-5.0) Globulin 2.7 g/dL Albumin/Globulin Ratio 1.4 (1.0-2.7) General Appearance: well appearing, no apparent distress, alert Head: normocephalic EENT: PERRL/EOMI, normal ENT inspection Neck: supple Respiratory: normal breath sounds, no respiratory distress Cardiovascular: normal rate Gastrointestinal: normal inspection, non tender, soft, normal bowel sounds, non -distended Rectal: deferred Genitourinary: no CVA tenderness Musculoskeletal: normal inspection, back normal Neurologic: normal inspection, alert, oriented x3, responsive Psychiatric: normal inspection, judgement/insight normal, memory normal Skin: normal inspection, normal color, no rash, warm/dry, palpation normal, well hydrated Lymphatic: normal inspection, no adenopathy Current Medications Current Medications Medications (Trade) Dose Ordered Sig/Olu Route PRN Reason Start Time Stop Time Status Last Admin Dose Admin Al Hydroxide/Mg Hydroxide (Mylanta II) 30 ml Q6H PRN ORAL dyspepsia 07/02/17 16:30 08/01/17 16:29 Baclofen (Lioresal) 10 mg THREE TIMES A DAY ORAL 07/02/17 18:00 08/01/17 17:59 Carbidopa/Levodopa (Sinemet 25/100) 1 ea TWICE A DAY ORAL 07/02/17 18:00 08/01/17 17:59 Dextrose (Dextrose 50%) STAT PRN IV Hypoglycemia 07/02/17 16:30 08/01/17 16:29 Diazepam (Valium) 5 mg BID ORAL 07/02/17 18:00 07/09/17 17:59 Diphenhydramine HCl (Benadryl) 25 mg Q4H PRN IVP Itching 07/02/17 16:30 08/01/17 16:29 07/02/17 16:41 Escitalopram Oxalate (Lexapro) 5 mg DAILY ORAL 07/03/17 09:00 08/02/17 08:59 Heparin Sodium (Porcine) (Heparin 5000 units/ml) 5,000 units EVERY 12 HOURS SUBQ 07/02/17 21:00 08/01/17 20:59 Insulin Aspart (NovoLOG) BEFORE MEALS AND HS SUBQ 07/02/17 17:00 08/01/17 16:59 Lorazepam (Ativan 2mg/ml 1ml) 0.5 mg Q4H PRN IV For Anxiety 07/02/17 16:30 07/09/17 16:29 Morphine Sulfate (Morphine Sulfate) 1 mg Q4H PRN IVP For Moderate to Severe Pain 07/02/17 16:30 07/09/17 16:29 07/02/17 16:42 Ondansetron HCl (Zofran) 4 mg Q6H PRN IVP Nausea & Vomiting 07/02/17 16:30 08/01/17 16:29 Polyethylene Glycol (Miralax) 17 gm HSPRN PRN ORAL Constipation 07/02/17 16:30 08/01/17 16:29 Pregabalin (Lyrica) 100 mg THREE TIMES A DAY ORAL 07/02/17 18:00 08/01/17 17:59 Risperidone (RisperDAL) 1 mg DAILY ORAL 07/03/17 09:00 08/02/17 08:59 Zolpidem Tartrate (Ambien) 5 mg HSPRN PRN ORAL Insomnia 07/02/17 16:30 07/09/17 16:29 GI: Plan Problems: (1) FTT (failure to thrive) in adult (2) Dehydration (3) Episode of generalized weakness Plan POLST noted >> Comfort Tx. No artificial treatment. DNR. symptomatic treatment at this time. push PO, consider marinol if no signs of improvement ADA diet simethicone prn zofran prn collect for stool studies, cdiff if diarrhea persists H2B fu labs Discussed with Dr. Mercedes. Thank you for this patient referral, we will follow. Paulette Shaffer N.P. Jul 02, 2017 17:19
[2017-07-02] MEDS: Lyrica 50mg cap ORAL SCH (17:22)
[2017-07-02] MEDS ORDERED: Simethicone 80mg tab ORAL PRN (17:30)
[2017-07-02] MEDS ORDERED: Sinemet 25/100 tab ORAL SCH (18:00)
--- NOTE | 2017-07-02 18:43 | Neurology Progress Note ---
Objective Physical Exam Last Vital Signs Date Time Temp Pulse Resp B/P (MAP) Pulse Ox O2 Delivery O2 Flow Rate FiO2 07/02/17 17:12 97.0 07/02/17 16:00 55 18 140/66 95 Room Air Laboratory Tests Test 07/02/17 12:25 White Blood Count 13.3 K/UL (4.8-10.8) H Red Blood Count 4.52 M/UL (4.20-5.40) Hemoglobin 13.7 G/DL (12.0-16.0) Hematocrit 41.2 % (37.0-47.0) Mean Corpuscular Volume 91 FL (80-99) Mean Corpuscular Hemoglobin 30.3 PG (27.0-31.0) Mean Corpuscular Hemoglobin Concent 33.2 G/DL (32.0-36.0) Red Cell Distribution Width 13.6 % (11.6-14.8) Platelet Count 289 K/UL (150-450) Mean Platelet Volume 8.1 FL (6.5-10.1) Neutrophils (%) (Auto) % (45.0-75.0) Lymphocytes (%) (Auto) % (20.0-45.0) Monocytes (%) (Auto) % (1.0-10.0) Eosinophils (%) (Auto) % (0.0-3.0) Basophils (%) (Auto) % (0.0-2.0) Differential Total Cells Counted 100 Neutrophils % (Manual) 84 % (45-75) H Lymphocytes % (Manual) 12 % (20-45) L Monocytes % (Manual) 2 % (1-10) Eosinophils % (Manual) 2 % (0-3) Basophils % (Manual) 0 % (0-2) Band Neutrophils 0 % (0-8) Platelet Estimate Adequate Platelet Morphology Normal Red Blood Cell Morphology Normal Urine Color Pale yellow Urine Appearance Clear Urine pH 6.5 (4.5-8.0) Urine Specific [place] 1.010 (1.005-1.035) Urine Protein Negative (NEGATIVE) Urine Glucose (UA) Negative (NEGATIVE) Urine Ketones Negative (NEGATIVE) Urine Occult Blood 1+ (NEGATIVE) H Urine Nitrite Negative (NEGATIVE) Urine Bilirubin Negative (NEGATIVE) Urine Urobilinogen Normal MG/DL (0.0-1.0) Urine Leukocyte Esterase Negative (NEGATIVE) Urine RBC 2-4 /HPF (0 - 2) H Urine WBC 0-2 /HPF (0 - 2) Urine Squamous Epithelial Cells Few /LPF (NONE/OCC) Urine Bacteria Occasional /HPF (NONE) Sodium Level 128 MMOL/L (136-145) L Potassium Level 3.9 MMOL/L (3.5-5.1) Chloride Level 94 MMOL/L (98-107) L Carbon Dioxide Level 28 MMOL/L (21-32) Anion Gap 6 mmol/L (5-15) Blood Urea Nitrogen 6 mg/dL (7-18) L Creatinine 0.6 MG/DL (0.55-1.30) Estimat Glomerular Filtration Rate > 60 mL/min (>60) Glucose Level 122 MG/DL (74-106) H Calcium Level 9.8 MG/DL (8.5-10.1) Total Bilirubin 0.3 MG/DL (0.2-1.0) Aspartate Amino Transf (AST/SGOT) 12 U/L (15-37) L Alanine Aminotransferase (ALT/SGPT) 8 U/L (12-78) L Alkaline Phosphatase 47 U/L (46-116) Total Creatine Kinase 54 U/L (26-308) Creatine Kinase MB < 0.5 NG/ML (0.0-3.6) Creatine Kinase MB Relative Index Troponin I 0.007 ng/mL (0.000-0.056) Total Protein 6.6 G/DL (6.4-8.2) Albumin 3.9 G/DL (3.4-5.0) Globulin 2.7 g/dL Albumin/Globulin Ratio 1.4 (1.0-2.7) Impression/Recommendations Recommendations #[id number] VALORIE GARCIA Jul 02, 2017 18:43
--- NOTE | 2017-07-02 18:58 | Diagnostic Imaging Report ---
Indication: Weakness Technique: XRAY CHEST 1 V Comparison: None Findings: Heart size and mediastinal contours are within normal limits given technique. There is no focal consolidation, pneumothorax or pleural effusion. Osseous structures demonstrate no acute abnormality. Impression: No radiographic evidence of acute cardiopulmonary disease.
[2017-07-02 19:57] VITALS: BP 133/62
--- NOTE | 2017-07-02 20:00 | History and Physical Report ---
DATE OF ADMISSION: 07/02/2017 TIME SEEN: At 12 noon. ATTENDING PHYSICIAN: Selvin Harris D.O. CONSULTANTS: 1. Eduarda Giordano M.D. 2. Santy Arrington M.D. 3. Naldo Grove M.D. 4. Royal Mercedes M.D. CHIEF COMPLAINT: Failure to thrive, increased confusion, general pain, psych history. BRIEF HISTORY: This is a 62-year-old female from [facility] presented with above-mentioned diagnosis, currently slightly anxious in bed, oriented x2 and slight anxious, complaining of general pain. PAST MEDICAL HISTORY: Include encephalopathy, weakness, and diabetes. PAST SURGICAL HISTORY: None. MEDICATIONS: We will obtain list shortly. ALLERGIES: Tylenol, fluphenazine, Haldol, , Ketoralac, penicillin, sulfa, and Bactrim. SOCIAL HISTORY: Positive smoking. Positive alcohol. No intravenous drug abuse. FAMILY HISTORY: Noncontributory. PHYSICAL EXAMINATION: GENERAL: Slightly anxious in the ER gurney, oriented x1, in no acute distress. VITAL SIGNS: Show temperature is 96, pulse 82, respirations 18, and blood pressure 130/62. CARDIOVASCULAR: No murmur. LUNGS: Distant clear. ABDOMEN: Bowel sounds positive. Nontender. Nondistended. EXTREMITIES: No cyanosis, clubbing, or edema. NEUROLOGIC: The patient moves all extremities, but slightly weak. LABORATORY DATA: Pending. ASSESSMENT: 1. Failure to thrive. 2. Altered mental status. 3. General pain. 4. Diabetes. 5. Encephalopathy. PLAN: 1. Continue premedications. 2. OT, PT and dietary evaluation. 3. Blood pressure and blood sugar control. 4. Pain control. 5. Dr. Watts, Dr. Arrington, Dr. Grove, and Dr. Mercedes to consult. 6. We will continue to follow this patient medically. 7. We will check laboratories count as able. Selvin Harris D.O. DR: VICTOR M JOB#: [id number] CC:
[2017-07-02] MEDS: Heparin 5000 units/ml inj SUBQ SCH (21:59)
[2017-07-03] VITALS: BP 103/84
--- NOTE | 2017-07-03 02:45 | Consultation ---
DATE OF CONSULTATION: 07/02/2017 NEUROLOGICAL CONSULTATION CONSULTING PHYSICIAN: Naldo Grove M.D. REQUESTING PHYSICIAN: Selvin Harris D.O. HISTORY OF PRESENT ILLNESS: This is a 62-year-old female, resident of a convalescent facility, who was brought to this hospital after several days of not eating, losing weight, developing significant weakness and generalized aches and pains. On admission, she was describing pain being throbbing at 8/10, but nonradiating. Her vital signs on admission were stable, she was afebrile. Her initial workup included laboratory studies with CBC study, WBC of 13.3, chemistry panel was unremarkable including troponin, but low sodium 128, and urinalysis unremarkable. Her CAT scan of the brain without contrast was repeated and this revealed no evidence of intracranial abnormality. Following admission until present, there were no further changes in mental status. Neurology consult was requested to assess new changes in her mental status. The patient has a history of chronic psychiatric disorder, chronic obstructive pulmonary disease, and gastroesophageal reflux disease. She complains of lack of balance, difficulty ambulation, lack of coordination, diabetes, and chronic anemia. MEDICATIONS: Treatment prior to admission included baclofen, aspirin, Cogentin, , Bisacodyl, Valium 5 mg b.i.d., diclofenac 50 mg t.i.d., Lexapro 5 mg daily, famotidine, levodopa and carbidopa 25/100 b.i.d., melatonin, metformin, Lyrica 100 mg t.i.d., simethicone, and tramadol 100 mg daily. ALLERGIES: Acetaminophen, fluphenazine, haloperidol, iodine, ketorolac, penicillin, and sulfa drugs. SOCIAL HISTORY: Lives in a nursing facility. Denies use of alcohol or drug abuse. Nonsmoker. The patient was seen at this facility one month ago for head trauma without loss of consciousness. FAMILY HISTORY: Noncontributory. REVIEW OF SYMPTOMS: The patient found to be asleep, but arousable. She was able to provide with limited history indicating that she has a significant tooth pain, occasional sharp shooting pain in the neck area, chest, upper back, and numbness and tingling in her rodriguez feet, and unsteady gait secondary to weakness, she is using walker. Denies chest pain or palpitations. No respiratory difficulties. No abdominal pain or discomfort. Does not appear depressed or anxious. PHYSICAL EXAMINATION: GENERAL: A well-developed and well-nourished female, not in acute distress, lying comfortably in bed, drowsy. VITAL SIGNS: Stable, heart rate fluctuating down to 55, blood pressure 140/66, and temperature 97.1. HEENT: Head normocephalic. There is no evidence of injuries. Eyes, ears, and throat are clear. NECK: Supple. No meningeal signs. MUSCULOSKELETAL: Unremarkable. There are no deformities. Peripheral pulses 1+ and symmetric. MENTAL STATUS: The patient is arousable. When alert, she was able to communicate. She was able to follow commands. No aphasia and no apraxia noted. CRANIAL NERVE II: Pupils both responding to light and accommodation. Extraocular movements intact. No nystagmus. CRANIAL NERVE V: Normal corneal responses. CRANIAL NERVE VII: No facial asymmetry. CRANIAL NERVE VIII: Normal hearing. CRANIAL NERVES IX THROUGH XII: Tongue is in midline. Symmetric palate elevation. MOTOR EXAMINATION: Normal muscle tone. Able to lift arms and legs against the gravity. No bradykinesia. No cogwheel rigidity noted. Deep tendon reflexes 4+ bilaterally and symmetric. Plantar response is flexor. SENSORY EXAMINATION: Normal to pin stimulation. Reduced proprioception. Gait slow, somewhat wobbly, and unsteady. IMPRESSION: 1. Generalized aches and pains, poorly defined, rule out fibromyalgia. 2. Diabetes type 2 with mild diabetic polyneuropathy. 3. Chronic schizoaffective disorder. 4. Abnormal gait contributed by pharmacy, diabetic neuropathy, and deconditioning. RECOMMENDATIONS: Hold all unessential treatment. No clear evidence of Parkinson disease, stop Sinemet. Hold use of morphine. Reduce Valium. Get PT/OT for mobility protocol. Continue with Lyrica 300 mg daily for pain management. Laboratory work to include collagen vascular profile, liver profile, and ammonia level. Get a Psychiatry assessment to adjust the patient's antipsychotic treatment. Thank you for allowing me to see this interesting patient in neurological consultation. Naldo Grove M.D. DR: GARETH JOB#: [id number] CC:
[2017-07-03 04:00] VITALS: BP 124/79
[2017-07-03] MEDS: NovoLOG Insulin Flexpen SUBQ SCH ×4 (06:30→20:51)
[2017-07-03 07:18] LABS: BASOPHILS % (AUTO) 0.8 % (0.0-2.0); EOSINOPHILS % (AUTO) 1.2 % (0.0-3.0); LYMPHOCYTES % (AUTO) 49.8 % (20.0-45.0); MEAN CORPUSCULAR HEMOGLOBIN 30.7 PG (27.0-31.0); MEAN CORPUSCULAR HGB CONC 33.4 G/DL (32.0-36.0); MEAN CORPUSCULAR VOLUME 92 FL (80-99); MEAN PLATELET VOLUME 8.2 FL (6.5-10.1); MONOCYTES % (AUTO) 9.2 % (1.0-10.0); PLATELET COUNT 289 K/UL (150-450); RED CELL DISTRIBUTION WIDTH 13.7 % (11.6-14.8); WHITE BLOOD COUNT 5.9 K/UL (4.8-10.8)
[2017-07-03 07:32] LABS: ALANINE AMINOTRANSFERASE 10 U/L (12-78); ALBUMIN/GLOBULIN RATIO 1.2 (1.0-2.7); ANION GAP 7 mmol/L (5-15); ASPARTATE AMINO TRANSFERASE 11 U/L (15-37); CARBON DIOXIDE 29 MMOL/L (21-32); CHLORIDE 104 MMOL/L (98-107); CHOLESTEROL 187 MG/DL (< 200); CHOLESTEROL/HDL RATIO 3.3 (3.3-4.4); CREATININE 0.6 MG/DL (0.55-1.30); GLOMERULAR FILTRATION RATE > 60 mL/min (>60); POTASSIUM 3.7 MMOL/L (3.5-5.1); SODIUM 140 MMOL/L (136-145); TOTAL PROTEIN 6.4 G/DL (6.4-8.2)
[2017-07-03 08:00] VITALS: BP 129/64
--- NOTE | 2017-07-03 08:16 | General Progress Note ---
Assessment/Plan Problem List: (1) Arthritis ICD Codes: M19.90 - Unspecified osteoarthritis, unspecified site SNOMED: 0667455 (2) FTT (failure to thrive) in adult ICD Codes: R62.7 - Adult failure to thrive SNOMED: 457067581 (3) Dehydration ICD Codes: E86.0 - Dehydration SNOMED: 65673091 Assessment/Plan recommend ortho eval for hip pain not a candidate for PEG will fu Subjective ROS Limited/Unobtainable: Yes Allergies: Coded Allergies: ACETAMINOPHEN (Verified Allergy, Unknown, 06/07/17) FLUPHENAZINE (Verified Allergy, Unknown, 06/07/17) HALOPERIDOL (Verified Allergy, Unknown, 06/07/17) IODINE (Verified Allergy, Unknown, 06/07/17) KETOROLAC (Verified Allergy, Unknown, 06/07/17) PENICILLINS (Verified Allergy, Unknown, 06/07/17) SULFAMETHOXAZOLE (Verified Allergy, Unknown, 06/07/17) Subjective c/o right hip pain Objective Last 24 Hour Vital Signs Date Time Temp Pulse Resp B/P (MAP) Pulse Ox O2 Delivery O2 Flow Rate FiO2 07/03/17 04:00 98.9 69 20 124/79 96 Room Air 07/03/17 00:00 98.1 57 20 103/84 94 07/02/17 22:39 98.2 07/02/17 19:57 98.2 60 18 133/62 96 Room Air 07/02/17 16:00 97.1 55 18 140/66 95 Room Air 07/02/17 14:26 74 17 146/85 99 Room Air 07/02/17 12:15 96.8 72 18 130/62 99 Room Air 07/02/17 11:59 98.1 92 16 130/80 98 Room Air Laboratory Tests 07/02/17 12:25: White Blood Count 13.3H, Red Blood Count 4.52, Hemoglobin 13.7, Hematocrit 41.2 , Mean Corpuscular Volume 91, Mean Corpuscular Hemoglobin 30.3, Mean Corpuscular Hemoglobin Concent 33.2, Red Cell Distribution Width 13.6, Platelet Count 289, Mean Platelet Volume 8.1, Neutrophils (%) (Auto) , Lymphocytes (%) ( Auto) , Monocytes (%) (Auto) , Eosinophils (%) (Auto) , Basophils (%) (Auto) , Differential Total Cells Counted 100, Neutrophils % (Manual) 84H, Lymphocytes % (Manual) 12L, Monocytes % (Manual) 2, Eosinophils % (Manual) 2, Basophils % ( Manual) 0, Band Neutrophils 0, Platelet Estimate Adequate, Platelet Morphology Normal, Red Blood Cell Morphology Normal, Urine Color Pale yellow, Urine Appearance Clear, Urine pH 6.5, Urine Specific [place] 1.010, Urine Protein Negative, Urine Glucose (UA) Negative, Urine Ketones Negative, Urine Occult Blood 1+H, Urine Nitrite Negative, Urine Bilirubin Negative, Urine Urobilinogen Normal, Urine Leukocyte Esterase Negative, Urine RBC 2-4H, Urine WBC 0-2, Urine Squamous Epithelial Cells Few, Urine Bacteria Occasional, Sodium Level 128L, Potassium Level 3.9, Chloride Level 94L, Carbon Dioxide Level 28, Anion Gap 6, Blood Urea Nitrogen 6L, Creatinine 0.6, Estimat Glomerular Filtration Rate > 60 , Glucose Level 122H, Calcium Level 9.8, Total Bilirubin 0.3, Aspartate Amino Transf (AST/SGOT) 12L, Alanine Aminotransferase (ALT/SGPT) 8L, Alkaline Phosphatase 47, Total Creatine Kinase 54, Creatine Kinase MB < 0.5, Creatine Kinase MB Relative Index , Troponin I 0.007, Total Protein 6.6, Albumin 3.9, Globulin 2.7, Albumin/Globulin Ratio 1.4 07/03/17 06:22: White Blood Count 5.9#, Red Blood Count 4.30, Hemoglobin 13.2, Hematocrit 39.6, Mean Corpuscular Volume 92, Mean Corpuscular Hemoglobin 30.7, Mean Corpuscular Hemoglobin Concent 33.4, Red Cell Distribution Width 13.7, Platelet Count 289, Mean Platelet Volume 8.2, Neutrophils (%) (Auto) 39.0L, Lymphocytes (%) (Auto) 49.8H, Monocytes (%) (Auto) 9.2, Eosinophils (%) (Auto) 1.2, Basophils (%) (Auto ) 0.8, Sodium Level 140#, Potassium Level 3.7, Chloride Level 104, Carbon Dioxide Level 29, Anion Gap 7, Blood Urea Nitrogen 8, Creatinine 0.6, Estimat Glomerular Filtration Rate > 60, Glucose Level 87, Calcium Level 9.0, Total Bilirubin 0.2, Aspartate Amino Transf (AST/SGOT) 11L, Alanine Aminotransferase ( ALT/SGPT) 10L, Alkaline Phosphatase 42L, Total Protein 6.4, Albumin 3.5, Globulin 2.9, Albumin/Globulin Ratio 1.2, Triglycerides Level 89, Cholesterol Level 187, LDL Cholesterol 106H, HDL Cholesterol 56, Cholesterol/HDL Ratio 3.3 Height (Feet): 5 Height (Inches): 5.00 Weight (Pounds): 168 General Appearance: alert EENT: normal ENT inspection Neck: supple Cardiovascular: normal rate Respiratory/Chest: lungs clear Abdomen: normal bowel sounds, non tender, soft Extremities: non-tender ANALI MEDINA Jul 03, 2017 08:16
[2017-07-03] MEDS: Lyrica 50mg cap ORAL SCH ×3 (08:31→18:36)
[2017-07-03] MEDS: Morphine Sulfate 2mg/ml Inj IVP PRN ×4 (08:32→22:54)
[2017-07-03] MEDS: DiphenhydrAMINE 50mg/ml Inj IVP PRN ×4 (08:32→22:53)
[2017-07-03] MEDS: Heparin 5000 units/ml inj SUBQ SCH ×2 (08:34→20:22)
--- NOTE | 2017-07-03 09:17 | General Progress Note ---
Assessment/Plan Problem List: (1) Diabetes ICD Codes: E11.9 - Type 2 diabetes mellitus without complications SNOMED: 77215516 (2) Leukocytosis ICD Codes: D72.829 - Elevated white blood cell count, unspecified SNOMED: 711586458, 156694461 (3) Weakness ICD Codes: R53.1 - Weakness SNOMED: 07764203 (4) Dehydration ICD Codes: E86.0 - Dehydration SNOMED: 32393091 (5) FTT (failure to thrive) in adult ICD Codes: R62.7 - Adult failure to thrive SNOMED: 456622903 (6) Episode of generalized weakness ICD Codes: R53.1 - Weakness SNOMED: 80510433 (7) Arthritis ICD Codes: M19.90 - Unspecified osteoarthritis, unspecified site SNOMED: 8602756 Status: stable, progressing, tolerating diet Assessment/Plan ot pt diet abx cbc bmp am id eval Subjective Constitutional: Reports: weakness Allergies: Coded Allergies: ACETAMINOPHEN (Verified Allergy, Unknown, 06/07/17) FLUPHENAZINE (Verified Allergy, Unknown, 06/07/17) HALOPERIDOL (Verified Allergy, Unknown, 06/07/17) IODINE (Verified Allergy, Unknown, 06/07/17) KETOROLAC (Verified Allergy, Unknown, 06/07/17) PENICILLINS (Verified Allergy, Unknown, 06/07/17) SULFAMETHOXAZOLE (Verified Allergy, Unknown, 06/07/17) All Systems: reviewed and negative except above Subjective sleepy calm Objective Last 24 Hour Vital Signs Date Time Temp Pulse Resp B/P (MAP) Pulse Ox O2 Delivery O2 Flow Rate FiO2 07/03/17 08:00 98.1 61 20 129/64 95 Room Air 07/03/17 04:00 98.9 69 20 124/79 96 Room Air 07/03/17 00:00 98.1 57 20 103/84 94 07/02/17 22:39 98.2 07/02/17 19:57 98.2 60 18 133/62 96 Room Air 07/02/17 16:00 97.1 55 18 140/66 95 Room Air 07/02/17 14:26 74 17 146/85 99 Room Air 07/02/17 12:15 96.8 72 18 130/62 99 Room Air 07/02/17 11:59 98.1 92 16 130/80 98 Room Air Laboratory Tests 07/02/17 12:25: White Blood Count 13.3H, Red Blood Count 4.52, Hemoglobin 13.7, Hematocrit 41.2 , Mean Corpuscular Volume 91, Mean Corpuscular Hemoglobin 30.3, Mean Corpuscular Hemoglobin Concent 33.2, Red Cell Distribution Width 13.6, Platelet Count 289, Mean Platelet Volume 8.1, Neutrophils (%) (Auto) , Lymphocytes (%) ( Auto) , Monocytes (%) (Auto) , Eosinophils (%) (Auto) , Basophils (%) (Auto) , Differential Total Cells Counted 100, Neutrophils % (Manual) 84H, Lymphocytes % (Manual) 12L, Monocytes % (Manual) 2, Eosinophils % (Manual) 2, Basophils % ( Manual) 0, Band Neutrophils 0, Platelet Estimate Adequate, Platelet Morphology Normal, Red Blood Cell Morphology Normal, Urine Color Pale yellow, Urine Appearance Clear, Urine pH 6.5, Urine Specific [place] 1.010, Urine Protein Negative, Urine Glucose (UA) Negative, Urine Ketones Negative, Urine Occult Blood 1+H, Urine Nitrite Negative, Urine Bilirubin Negative, Urine Urobilinogen Normal, Urine Leukocyte Esterase Negative, Urine RBC 2-4H, Urine WBC 0-2, Urine Squamous Epithelial Cells Few, Urine Bacteria Occasional, Sodium Level 128L, Potassium Level 3.9, Chloride Level 94L, Carbon Dioxide Level 28, Anion Gap 6, Blood Urea Nitrogen 6L, Creatinine 0.6, Estimat Glomerular Filtration Rate > 60 , Glucose Level 122H, Calcium Level 9.8, Total Bilirubin 0.3, Aspartate Amino Transf (AST/SGOT) 12L, Alanine Aminotransferase (ALT/SGPT) 8L, Alkaline Phosphatase 47, Total Creatine Kinase 54, Creatine Kinase MB < 0.5, Creatine Kinase MB Relative Index , Troponin I 0.007, Total Protein 6.6, Albumin 3.9, Globulin 2.7, Albumin/Globulin Ratio 1.4 07/03/17 06:22: White Blood Count 5.9#, Red Blood Count 4.30, Hemoglobin 13.2, Hematocrit 39.6, Mean Corpuscular Volume 92, Mean Corpuscular Hemoglobin 30.7, Mean Corpuscular Hemoglobin Concent 33.4, Red Cell Distribution Width 13.7, Platelet Count 289, Mean Platelet Volume 8.2, Neutrophils (%) (Auto) 39.0L, Lymphocytes (%) (Auto) 49.8H, Monocytes (%) (Auto) 9.2, Eosinophils (%) (Auto) 1.2, Basophils (%) (Auto ) 0.8, Sodium Level 140#, Potassium Level 3.7, Chloride Level 104, Carbon Dioxide Level 29, Anion Gap 7, Blood Urea Nitrogen 8, Creatinine 0.6, Estimat Glomerular Filtration Rate > 60, Glucose Level 87, Calcium Level 9.0, Total Bilirubin 0.2, Aspartate Amino Transf (AST/SGOT) 11L, Alanine Aminotransferase ( ALT/SGPT) 10L, Alkaline Phosphatase 42L, Total Protein 6.4, Albumin 3.5, Globulin 2.9, Albumin/Globulin Ratio 1.2, Triglycerides Level 89, Cholesterol Level 187, LDL Cholesterol 106H, HDL Cholesterol 56, Cholesterol/HDL Ratio 3.3 Height (Feet): 5 Height (Inches): 5.00 Weight (Pounds): 168 General Appearance: lethargic EENT: normal ENT inspection Neck: normal alignment Cardiovascular: normal peripheral pulses, normal rate, regular rhythm Respiratory/Chest: chest wall non-tender, lungs clear, normal breath sounds Abdomen: normal bowel sounds, non tender, soft Extremities: normal inspection Edema: no edema noted Arm (L), no edema noted Arm (R), no edema noted Leg (L), no edema noted Leg (R), no edema noted Pedal (L), no edema noted Pedal (R), no edema noted Generalized Neurologic: motor weakness Skin: normal pigmentation, warm/dry AYLA HOPKINS Jul 03, 2017 09:17
[2017-07-03] MEDS: Escitalopram Oxalate 5mg tab ORAL SCH (10:35)
[2017-07-03 12:00] VITALS: BP 131/55
--- NOTE | 2017-07-03 16:15 | Consultation ---
DATE OF CONSULTATION: 07/03/2017 INFECTIOUS DISEASES CONSULTATION CONSULTING PHYSICIAN: Lynne Bautista M.D. REFERRING PHYSICIAN: Selvin Harris D.O. This consultation has been done on behalf of Dr. Ayush Rao. REASON FOR CONSULTATION: Encephalopathy. HISTORY OF PRESENTING ILLNESS: This is a 62-year-old lady with history of diabetes, encephalopathy who came in with anxiety and pain. She was seen in [facility] and an Infectious Disease consultation has been obtained for antibiotics. She was also found to have leukocytosis. PAST MEDICAL HISTORY: 1. History of encephalopathy. 2. History of diabetes. 3. History of COPD. 4. History of schizo-depressive disorder. SOCIAL HISTORY: Unknown. FAMILY HISTORY: Unknown. REVIEW OF SYSTEMS: Unable to obtain currently. MEDICATIONS: As an inpatient, she is on Lexapro, Risperdal, subcutaneous heparin, famotidine, diazepam, Lyrica, simethicone, Insulin, morphine, MiraLAX, Zofran, Ambien, lorazepam, Mylanta, and Benadryl. ALLERGIES: 1. Acetomenophen. 2. Fluphenazine. 3. Haloperidol. 4. Iodine. 5. Ketorolac. 6. Penicillin. 7. Bactrim. PHYSICAL EXAMINATION: VITAL SIGNS: Temperature of 98.1, T-max of 98.9, pulse of 61, respiratory rate 20, blood pressure 129/64, and O2 saturation of 95%. HEENT: Pupils equally reactive to light and accommodation. Mouth appears clean without thrush. NECK: Supple. No adenopathy. No JVD. CARDIOVASCULAR: Regular rate and rhythm. No murmurs. LUNGS: Clear to auscultation bilaterally. No crackles. No wheezes. ABDOMEN: Soft and nontender. No organomegaly. EXTREMITIES: No cyanosis, no clubbing, no edema. LABORATORY DATA: White count of 13.3 yesterday, white count of 5.9 today, hemoglobin 13.2, hematocrit 39.6, MCV 92, platelet count of 289, neutrophils of 39%. Sodium 140, potassium 3.7, chloride 104, bicarbonate 29, BUN 8, creatinine 0.6, glucose 87, calcium 9, total bilirubin 0.2. AST 11, ALT 10, and alkaline phosphatase 42. CK of 54, CK-MB less than 0.5. Total protein 6.4, albumin 3.5, cholesterol of 187. UA showing 0 to 2 white cells. Chest x-ray, it was unremarkable. CT head showing no hemorrhage, mass effect, or edema. ASSESSMENT: 1. This is a 62-year-old lady with history of encephalopathy and diabetes who comes in with leukocytosis, which has since resolved. 2. Dehydration. 3. Diabetes. PLAN: 1. Continue off antibiotics for now. 2. We will follow the patient clinically. I would like to thank Dr. Selvin Harris for this consultation. Lynne Bautista M.D. DR: ERICK JOB#: [id number] CC: Selvin Harris D.O.
[2017-07-03 16:46] VITALS: BP 141/63
--- NOTE | 2017-07-03 17:06 | Pulmonology Progress Note ---
Assessment/Plan Problems: (1) Dysphagia (2) Weakness (3) Diabetes (4) Arthritis (5) Episode of generalized weakness Assessment/Plan down grade diet to full liquid GI following barium swallow symptomatic treatment Subjective ROS Limited/Unobtainable: No Interval Events: can't eat now Allergies: Coded Allergies: ACETAMINOPHEN (Verified Allergy, Unknown, 06/07/17) FLUPHENAZINE (Verified Allergy, Unknown, 06/07/17) HALOPERIDOL (Verified Allergy, Unknown, 06/07/17) IODINE (Verified Allergy, Unknown, 06/07/17) KETOROLAC (Verified Allergy, Unknown, 06/07/17) PENICILLINS (Verified Allergy, Unknown, 06/07/17) SULFAMETHOXAZOLE (Verified Allergy, Unknown, 06/07/17) Objective Last 24 Hour Vital Signs Date Time Temp Pulse Resp B/P (MAP) Pulse Ox O2 Delivery O2 Flow Rate FiO2 07/03/17 16:46 97.9 62 20 141/63 95 Room Air 07/03/17 12:00 98.1 56 18 131/55 95 Room Air 07/03/17 08:00 98.1 61 20 129/64 95 Room Air 07/03/17 04:00 98.9 69 20 124/79 96 Room Air 07/03/17 00:00 98.1 57 20 103/84 94 07/02/17 22:39 98.2 07/02/17 19:57 98.2 60 18 133/62 96 Room Air General Appearance: WD/WN HEENT: normocephalic, atraumatic Respiratory/Chest: chest wall non-tender, lungs clear Breasts: no masses Cardiovascular: normal peripheral pulses Abdomen: normal bowel sounds, soft, non tender Genitourinary: normal external genitalia Extremities: no clubbing 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, abnormal gait Laboratory Tests 07/03/17 06:22: White Blood Count 5.9#, Red Blood Count 4.30, Hemoglobin 13.2, Hematocrit 39.6, Mean Corpuscular Volume 92, Mean Corpuscular Hemoglobin 30.7, Mean Corpuscular Hemoglobin Concent 33.4, Red Cell Distribution Width 13.7, Platelet Count 289, Mean Platelet Volume 8.2, Neutrophils (%) (Auto) 39.0L, Lymphocytes (%) (Auto) 49.8H, Monocytes (%) (Auto) 9.2, Eosinophils (%) (Auto) 1.2, Basophils (%) (Auto ) 0.8, Sodium Level 140#, Potassium Level 3.7, Chloride Level 104, Carbon Dioxide Level 29, Anion Gap 7, Blood Urea Nitrogen 8, Creatinine 0.6, Estimat Glomerular Filtration Rate > 60, Glucose Level 87, Calcium Level 9.0, Total Bilirubin 0.2, Aspartate Amino Transf (AST/SGOT) 11L, Alanine Aminotransferase ( ALT/SGPT) 10L, Alkaline Phosphatase 42L, Total Protein 6.4, Albumin 3.5, Globulin 2.9, Albumin/Globulin Ratio 1.2, Triglycerides Level 89, Cholesterol Level 187, LDL Cholesterol 106H, HDL Cholesterol 56, Cholesterol/HDL Ratio 3.3 Current Medications Medications (Trade) Dose Ordered Sig/Olu Route PRN Reason Start Time Stop Time Status Last Admin Dose Admin Al Hydroxide/Mg Hydroxide (Mylanta II) 30 ml Q6H PRN ORAL dyspepsia 07/02/17 16:30 08/01/17 16:29 Dextrose (Dextrose 50%) STAT PRN IV Hypoglycemia 07/02/17 16:30 08/01/17 16:29 Diazepam (Valium) 5 mg BID ORAL 07/02/17 18:00 07/09/17 17:59 07/03/17 08:31 Diphenhydramine HCl (Benadryl) 25 mg Q4H PRN IVP Itching 07/02/17 16:30 08/01/17 16:29 07/03/17 14:03 Escitalopram Oxalate (Lexapro) 5 mg DAILY ORAL 07/03/17 09:00 08/02/17 08:59 07/03/17 10:35 Famotidine (Pepcid I.v.) 20 mg Q12HR IVP 07/02/17 21:00 08/01/17 20:59 07/03/17 10:36 Heparin Sodium (Porcine) (Heparin 5000 units/ml) 5,000 units EVERY 12 HOURS SUBQ 07/02/17 21:00 08/01/17 20:59 07/03/17 08:34 Insulin Aspart (NovoLOG) BEFORE MEALS AND HS SUBQ 07/02/17 17:00 08/01/17 16:59 07/02/17 21:58 Lorazepam (Ativan 2mg/ml 1ml) 0.5 mg Q4H PRN IV For Anxiety 07/02/17 16:30 07/09/17 16:29 Morphine Sulfate (Morphine Sulfate) 1 mg Q4H PRN IVP For Moderate to Severe Pain 07/02/17 16:30 07/09/17 16:29 07/03/17 14:03 Ondansetron HCl (Zofran) 4 mg Q6H PRN IVP Nausea & Vomiting 07/02/17 16:30 08/01/17 16:29 Polyethylene Glycol (Miralax) 17 gm HSPRN PRN ORAL Constipation 07/02/17 16:30 08/01/17 16:29 Pregabalin (Lyrica) 100 mg THREE TIMES A DAY ORAL 07/02/17 18:00 08/01/17 17:59 07/03/17 14:05 Risperidone (RisperDAL) 1 mg DAILY ORAL 07/03/17 09:00 08/02/17 08:59 07/03/17 08:31 Simethicone (Mylicon) 80 mg QIDPRN PRN ORAL GAS PAIN 07/02/17 17:30 08/01/17 17:29 Zolpidem Tartrate (Ambien) 5 mg HSPRN PRN ORAL Insomnia 07/02/17 16:30 07/09/17 16:29 CHINO HARTMAN Jul 03, 2017 17:05
[2017-07-03] MEDS ORDERED: 1/2 NS 1000ml IV ONE (17:25)
[2017-07-03 20:00] VITALS: BP 132/63
[2017-07-04 00:41] VITALS: BP 137/66
[2017-07-04] MEDS: DiphenhydrAMINE 50mg/ml Inj IVP PRN ×4 (05:17→18:45)
[2017-07-04] MEDS: Morphine Sulfate 2mg/ml Inj IVP PRN ×4 (05:17→18:46)
[2017-07-04] MEDS: NovoLOG Insulin Flexpen SUBQ SCH ×4 (06:23→20:32)
--- NOTE | 2017-07-04 07:39 | General Progress Note ---
Assessment/Plan Problem List: (1) Arthritis ICD Codes: M19.90 - Unspecified osteoarthritis, unspecified site SNOMED: 2654077 (2) FTT (failure to thrive) in adult ICD Codes: R62.7 - Adult failure to thrive SNOMED: 776923369 (3) Dehydration ICD Codes: E86.0 - Dehydration SNOMED: 15538283 Assessment/Plan recommend ortho eval for hip pain not a candidate for PEG fu barium swallow ordered by pulm Subjective ROS Limited/Unobtainable: Yes Allergies: Coded Allergies: ACETAMINOPHEN (Verified Allergy, Unknown, 06/07/17) FLUPHENAZINE (Verified Allergy, Unknown, 06/07/17) HALOPERIDOL (Verified Allergy, Unknown, 06/07/17) IODINE (Verified Allergy, Unknown, 06/07/17) KETOROLAC (Verified Allergy, Unknown, 06/07/17) PENICILLINS (Verified Allergy, Unknown, 06/07/17) SULFAMETHOXAZOLE (Verified Allergy, Unknown, 06/07/17) Subjective c/o right hip pain Objective Last 24 Hour Vital Signs Date Time Temp Pulse Resp B/P (MAP) Pulse Ox O2 Delivery O2 Flow Rate FiO2 07/04/17 00:45 Room Air 07/04/17 00:41 98.2 51 18 137/66 93 07/03/17 20:00 Room Air 07/03/17 20:00 98.1 58 17 132/63 94 07/03/17 16:46 97.9 62 20 141/63 95 Room Air 07/03/17 12:00 98.1 56 18 131/55 95 Room Air 07/03/17 08:00 98.1 61 20 129/64 95 Room Air Height (Feet): 5 Height (Inches): 5.00 Weight (Pounds): 168 General Appearance: alert EENT: normal ENT inspection Neck: supple Cardiovascular: normal rate Respiratory/Chest: decreased breath sounds Abdomen: normal bowel sounds, non tender, soft Extremities: non-tender ANALI MEDINA Jul 04, 2017 07:39
[2017-07-04 08:17] VITALS: BP 146/73
--- NOTE | 2017-07-04 08:21 | General Progress Note ---
Assessment/Plan Problem List: (1) Diabetes ICD Codes: E11.9 - Type 2 diabetes mellitus without complications SNOMED: 65766506 (2) Leukocytosis ICD Codes: D72.829 - Elevated white blood cell count, unspecified SNOMED: 138029128, 545313310 (3) Weakness ICD Codes: R53.1 - Weakness SNOMED: 78667091 (4) Dehydration ICD Codes: E86.0 - Dehydration SNOMED: 43242326 (5) FTT (failure to thrive) in adult ICD Codes: R62.7 - Adult failure to thrive SNOMED: 353200602 (6) Episode of generalized weakness ICD Codes: R53.1 - Weakness SNOMED: 91994559 (7) Arthritis ICD Codes: M19.90 - Unspecified osteoarthritis, unspecified site SNOMED: 9220361 Status: unchanged Assessment/Plan ot pt diet abx cbc bmp am id eval Subjective Constitutional: Reports: weakness Allergies: Coded Allergies: ACETAMINOPHEN (Verified Allergy, Unknown, 06/07/17) FLUPHENAZINE (Verified Allergy, Unknown, 06/07/17) HALOPERIDOL (Verified Allergy, Unknown, 06/07/17) IODINE (Verified Allergy, Unknown, 06/07/17) KETOROLAC (Verified Allergy, Unknown, 06/07/17) PENICILLINS (Verified Allergy, Unknown, 06/07/17) SULFAMETHOXAZOLE (Verified Allergy, Unknown, 06/07/17) All Systems: reviewed and negative except above Subjective sleepy calm Objective Last 24 Hour Vital Signs Date Time Temp Pulse Resp B/P (MAP) Pulse Ox O2 Delivery O2 Flow Rate FiO2 07/04/17 08:17 98.1 56 19 146/73 92 07/04/17 00:45 Room Air 07/04/17 00:41 98.2 51 18 137/66 93 07/03/17 20:00 Room Air 07/03/17 20:00 98.1 58 17 132/63 94 07/03/17 16:46 97.9 62 20 141/63 95 Room Air 07/03/17 12:00 98.1 56 18 131/55 95 Room Air Height (Feet): 5 Height (Inches): 5.00 Weight (Pounds): 168 General Appearance: lethargic EENT: normal ENT inspection Neck: normal alignment Cardiovascular: normal peripheral pulses, normal rate, regular rhythm Respiratory/Chest: chest wall non-tender, lungs clear, normal breath sounds Abdomen: normal bowel sounds, non tender, soft Extremities: normal inspection Edema: no edema noted Arm (L), no edema noted Arm (R), no edema noted Leg (L), no edema noted Leg (R), no edema noted Pedal (L), no edema noted Pedal (R), no edema noted Generalized Neurologic: responsive, motor weakness Skin: normal pigmentation, warm/dry AYLA HOPKINS Jul 04, 2017 08:21
[2017-07-04] MEDS: Escitalopram Oxalate 5mg tab ORAL SCH (08:23)
[2017-07-04] MEDS: Lyrica 50mg cap ORAL SCH ×3 (08:23→17:07)
[2017-07-04] MEDS: Heparin 5000 units/ml inj SUBQ SCH ×2 (08:27→20:37)
[2017-07-04 09:05] LABS: BASOPHILS % (AUTO) 0.9 % (0.0-2.0); EOSINOPHILS % (AUTO) 1.3 % (0.0-3.0); LYMPHOCYTES % (AUTO) 42.9 % (20.0-45.0); MEAN CORPUSCULAR HEMOGLOBIN 31.1 PG (27.0-31.0); MEAN CORPUSCULAR HGB CONC 33.1 G/DL (32.0-36.0); MEAN CORPUSCULAR VOLUME 94 FL (80-99); MEAN PLATELET VOLUME 7.7 FL (6.5-10.1); MONOCYTES % (AUTO) 6.9 % (1.0-10.0); PLATELET COUNT 270 K/UL (150-450); RED BLOOD COUNT 4.38 M/UL (4.20-5.40); RED CELL DISTRIBUTION WIDTH 14.1 % (11.6-14.8); WHITE BLOOD COUNT 7.6 K/UL (4.8-10.8)
[2017-07-04 09:19] LABS: ANION GAP 7 mmol/L (5-15); CALCIUM 9.3 MG/DL (8.5-10.1); CARBON DIOXIDE 28 MMOL/L (21-32); CHLORIDE 103 MMOL/L (98-107); CREATININE 0.7 MG/DL (0.55-1.30); GLOMERULAR FILTRATION RATE > 60 mL/min (>60); POTASSIUM 4.4 MMOL/L (3.5-5.1); SODIUM 138 MMOL/L (136-145)
--- NOTE | 2017-07-04 09:50 | Infectious Diseases Prog Note ---
Assessment/Plan Assessment/Plan A; Leukocytosis resolved Dehydration Arthritis P: observe off antibiotic Subjective ROS Limited/Unobtainable: No Constitutional: Reports: no symptoms Respiratory: Reports: dry cough Cardiovascular: Reports: no symptoms Gastrointestinal/Abdominal: Reports: no symptoms Musculoskeletal: Reports: pain, other - in mutiple joints Allergies: Coded Allergies: ACETAMINOPHEN (Verified Allergy, Unknown, 06/07/17) FLUPHENAZINE (Verified Allergy, Unknown, 06/07/17) HALOPERIDOL (Verified Allergy, Unknown, 06/07/17) IODINE (Verified Allergy, Unknown, 06/07/17) KETOROLAC (Verified Allergy, Unknown, 06/07/17) PENICILLINS (Verified Allergy, Unknown, 06/07/17) SULFAMETHOXAZOLE (Verified Allergy, Unknown, 06/07/17) Objective Vital Signs Last 24 Hour Vital Signs Date Time Temp Pulse Resp B/P (MAP) Pulse Ox O2 Delivery O2 Flow Rate FiO2 07/04/17 08:17 98.1 56 19 146/73 92 07/04/17 00:45 Room Air 07/04/17 00:41 98.2 51 18 137/66 93 07/03/17 20:00 Room Air 07/03/17 20:00 98.1 58 17 132/63 94 07/03/17 16:46 97.9 62 20 141/63 95 Room Air 07/03/17 12:00 98.1 56 18 131/55 95 Room Air Height (Feet): 5 Height (Inches): 5.00 Weight (Pounds): 168 General Appearance: no acute distress HEENT: mucous membranes moist Respiratory/Chest: lungs clear Cardiovascular: normal rate Abdomen: soft, non tender Extremities: no edema Neurologic/Psychiatric: alert, oriented x 3, responsive Microbiology Date/Time Source Procedure Growth Status 07/02/17 12:30 Nasal Nares MRSA Culture - Final NO METHICILLIN RESISTANT STAPH AUREUS... Complete 07/02/17 12:30 Rectum VRE Culture - Final NO VANCOMYCIN RESISTANT ENTEROCOCCUS ... Complete Laboratory Tests Test 07/04/17 08:20 White Blood Count 7.6 K/UL (4.8-10.8) Red Blood Count 4.38 M/UL (4.20-5.40) Hemoglobin 13.6 G/DL (12.0-16.0) Hematocrit 41.1 % (37.0-47.0) Mean Corpuscular Volume 94 FL (80-99) Mean Corpuscular Hemoglobin 31.1 PG (27.0-31.0) H Mean Corpuscular Hemoglobin Concent 33.1 G/DL (32.0-36.0) Red Cell Distribution Width 14.1 % (11.6-14.8) Platelet Count 270 K/UL (150-450) Mean Platelet Volume 7.7 FL (6.5-10.1) Neutrophils (%) (Auto) 48.0 % (45.0-75.0) Lymphocytes (%) (Auto) 42.9 % (20.0-45.0) Monocytes (%) (Auto) 6.9 % (1.0-10.0) Eosinophils (%) (Auto) 1.3 % (0.0-3.0) Basophils (%) (Auto) 0.9 % (0.0-2.0) Sodium Level 138 MMOL/L (136-145) Potassium Level 4.4 MMOL/L (3.5-5.1) Chloride Level 103 MMOL/L (98-107) Carbon Dioxide Level 28 MMOL/L (21-32) Anion Gap 7 mmol/L (5-15) Blood Urea Nitrogen 6 mg/dL (7-18) L Creatinine 0.7 MG/DL (0.55-1.30) Estimat Glomerular Filtration Rate > 60 mL/min (>60) Glucose Level 111 MG/DL (74-106) H Calcium Level 9.3 MG/DL (8.5-10.1) Current Medications Medications (Trade) Dose Ordered Sig/Olu Route PRN Reason Start Time Stop Time Status Last Admin Dose Admin Al Hydroxide/Mg Hydroxide (Mylanta II) 30 ml Q6H PRN ORAL dyspepsia 07/02/17 16:30 08/01/17 16:29 Dextrose (Dextrose 50%) STAT PRN IV Hypoglycemia 07/02/17 16:30 08/01/17 16:29 Diazepam (Valium) 5 mg BID ORAL 07/02/17 18:00 07/09/17 17:59 07/04/17 08:23 Diphenhydramine HCl (Benadryl) 25 mg Q4H PRN IVP Itching 07/02/17 16:30 08/01/17 16:29 07/04/17 05:17 Escitalopram Oxalate (Lexapro) 5 mg DAILY ORAL 07/03/17 09:00 08/02/17 08:59 07/04/17 08:23 Famotidine (Pepcid I.v.) 20 mg Q12HR IVP 07/02/17 21:00 08/01/17 20:59 07/03/17 20:20 Heparin Sodium (Porcine) (Heparin 5000 units/ml) 5,000 units EVERY 12 HOURS SUBQ 07/02/17 21:00 08/01/17 20:59 07/04/17 08:27 Insulin Aspart (NovoLOG) BEFORE MEALS AND HS SUBQ 07/02/17 17:00 08/01/17 16:59 07/03/17 20:51 Lorazepam (Ativan 2mg/ml 1ml) 0.5 mg Q4H PRN IV For Anxiety 07/02/17 16:30 07/09/17 16:29 Morphine Sulfate (Morphine Sulfate) 1 mg Q4H PRN IVP For Moderate to Severe Pain 07/02/17 16:30 07/09/17 16:29 07/04/17 05:17 Ondansetron HCl (Zofran) 4 mg Q6H PRN IVP Nausea & Vomiting 07/02/17 16:30 08/01/17 16:29 Polyethylene Glycol (Miralax) 17 gm HSPRN PRN ORAL Constipation 07/02/17 16:30 08/01/17 16:29 Pregabalin (Lyrica) 100 mg THREE TIMES A DAY ORAL 07/02/17 18:00 08/01/17 17:59 07/04/17 08:23 Risperidone (RisperDAL) 1 mg DAILY ORAL 07/03/17 09:00 08/02/17 08:59 07/04/17 08:23 Simethicone (Mylicon) 80 mg QIDPRN PRN ORAL GAS PAIN 07/02/17 17:30 08/01/17 17:29 Zolpidem Tartrate (Ambien) 5 mg HSPRN PRN ORAL Insomnia 07/02/17 16:30 07/09/17 16:29 GAYLE HINKLE Jul 04, 2017 09:50
[2017-07-04 11:59] VITALS: BP 149/64
[2017-07-04] MEDS ORDERED: HYDROmorphone 1mg/ml Carpuject IVP ONE (13:15)
[2017-07-04 16:13] VITALS: BP 139/77
--- NOTE | 2017-07-04 17:34 | Pulmonology Progress Note ---
Assessment/Plan Problems: (1) Dysphagia (2) Weakness (3) Diabetes (4) Arthritis (5) Episode of generalized weakness Assessment/Plan tolerating diet full liquid GI following barium swallow symptomatic treatment CT of maxillary bones Subjective ROS Limited/Unobtainable: No Allergies: Coded Allergies: ACETAMINOPHEN (Verified Allergy, Unknown, 06/07/17) FLUPHENAZINE (Verified Allergy, Unknown, 06/07/17) HALOPERIDOL (Verified Allergy, Unknown, 06/07/17) IODINE (Verified Allergy, Unknown, 06/07/17) KETOROLAC (Verified Allergy, Unknown, 06/07/17) PENICILLINS (Verified Allergy, Unknown, 06/07/17) SULFAMETHOXAZOLE (Verified Allergy, Unknown, 06/07/17) Objective Last 24 Hour Vital Signs Date Time Temp Pulse Resp B/P (MAP) Pulse Ox O2 Delivery O2 Flow Rate FiO2 07/04/17 16:13 98.4 65 21 139/77 92 07/04/17 15:28 97.2 07/04/17 11:59 97.2 67 21 149/64 93 07/04/17 08:17 98.1 56 19 146/73 92 07/04/17 00:45 Room Air 07/04/17 00:41 98.2 51 18 137/66 93 07/03/17 20:00 Room Air 07/03/17 20:00 98.1 58 17 132/63 94 Intake and Output 07/04/17 07/05/17 19:00 07:00 Intake Total 720 ml Balance 720 ml Intake Oral 720 ml # Voids 1 Objective General Appearance: WD/WN Lines, tubes and drains: peripheral, HEENT: normocephalic, atraumatic Neck: non-tender, normal alignment Respiratory/Chest: chest wall non-tender, lungs clear, normal breath sounds Breasts: no masses Cardiovascular/Chest: normal rate Abdomen: normal bowel sounds Extremities: normal range of motion Microbiology Date/Time Source Procedure Growth Status 07/02/17 12:30 Nasal Nares MRSA Culture - Final NO METHICILLIN RESISTANT STAPH AUREUS... Complete 07/02/17 12:30 Rectum VRE Culture - Final NO VANCOMYCIN RESISTANT ENTEROCOCCUS ... Complete Laboratory Tests 07/04/17 08:20: White Blood Count 7.6, Red Blood Count 4.38, Hemoglobin 13.6, Hematocrit 41.1, Mean Corpuscular Volume 94, Mean Corpuscular Hemoglobin 31.1H, Mean Corpuscular Hemoglobin Concent 33.1, Red Cell Distribution Width 14.1, Platelet Count 270, Mean Platelet Volume 7.7, Neutrophils (%) (Auto) 48.0, Lymphocytes (%) (Auto) 42.9, Monocytes (%) (Auto) 6.9, Eosinophils (%) (Auto) 1.3, Basophils (%) (Auto ) 0.9, Sodium Level 138, Potassium Level 4.4, Chloride Level 103, Carbon Dioxide Level 28, Anion Gap 7, Blood Urea Nitrogen 6L, Creatinine 0.7, Estimat Glomerular Filtration Rate > 60, Glucose Level 111H, Calcium Level 9.3 Current Medications Medications (Trade) Dose Ordered Sig/Olu Route PRN Reason Start Time Stop Time Status Last Admin Dose Admin Al Hydroxide/Mg Hydroxide (Mylanta II) 30 ml Q6H PRN ORAL dyspepsia 07/02/17 16:30 08/01/17 16:29 Cetylpyridinium Chloride (Cepacol) 1 lozenge Q2H PRN BEAU mouth/throat pain 07/04/17 12:15 08/03/17 12:14 07/04/17 12:22 Dextrose (Dextrose 50%) STAT PRN IV Hypoglycemia 07/02/17 16:30 08/01/17 16:29 Diazepam (Valium) 5 mg BID ORAL 07/02/17 18:00 07/09/17 17:59 07/04/17 17:08 Diphenhydramine HCl (Benadryl) 25 mg Q4H PRN IVP Itching 07/02/17 16:30 08/01/17 16:29 07/04/17 14:58 Escitalopram Oxalate (Lexapro) 5 mg DAILY ORAL 07/03/17 09:00 08/02/17 08:59 07/04/17 08:23 Famotidine (Pepcid I.v.) 20 mg Q12HR IVP 07/02/17 21:00 08/01/17 20:59 07/04/17 11:00 Heparin Sodium (Porcine) (Heparin 5000 units/ml) 5,000 units EVERY 12 HOURS SUBQ 07/02/17 21:00 08/01/17 20:59 07/04/17 08:27 Insulin Aspart (NovoLOG) BEFORE MEALS AND HS SUBQ 07/02/17 17:00 08/01/17 16:59 07/03/17 20:51 Lorazepam (Ativan 2mg/ml 1ml) 0.5 mg Q4H PRN IV For Anxiety 07/02/17 16:30 07/09/17 16:29 Morphine Sulfate (Morphine Sulfate) 1 mg Q4H PRN IVP For Moderate to Severe Pain 07/02/17 16:30 07/09/17 16:29 07/04/17 14:58 Ondansetron HCl (Zofran) 4 mg Q6H PRN IVP Nausea & Vomiting 07/02/17 16:30 08/01/17 16:29 Polyethylene Glycol (Miralax) 17 gm HSPRN PRN ORAL Constipation 07/02/17 16:30 08/01/17 16:29 Pregabalin (Lyrica) 100 mg THREE TIMES A DAY ORAL 07/02/17 18:00 08/01/17 17:59 07/04/17 17:07 Risperidone (RisperDAL) 1 mg DAILY ORAL 07/03/17 09:00 08/02/17 08:59 07/04/17 08:23 Simethicone (Mylicon) 80 mg QIDPRN PRN ORAL GAS PAIN 07/02/17 17:30 08/01/17 17:29 Zolpidem Tartrate (Ambien) 5 mg HSPRN PRN ORAL Insomnia 07/02/17 16:30 07/09/17 16:29 CHINO HARTMAN Jul 04, 2017 17:34
[2017-07-04 20:00] VITALS: BP 148/64
[2017-07-05] VITALS: BP 145/66
[2017-07-05] MEDS: DiphenhydrAMINE 50mg/ml Inj IVP PRN ×4 (00:06→22:09)
[2017-07-05] MEDS: Morphine Sulfate 2mg/ml Inj IVP PRN ×5 (00:06→21:52)
[2017-07-05 04:00] VITALS: BP 137/60
[2017-07-05] MEDS: NovoLOG Insulin Flexpen SUBQ SCH ×4 (06:11→20:42)
[2017-07-05 06:33] LABS: EOSINOPHILS % (AUTO) 1.6 % (0.0-3.0); LYMPHOCYTES % (AUTO) 54.8 % (20.0-45.0); MEAN CORPUSCULAR HEMOGLOBIN 30.9 PG (27.0-31.0); MEAN CORPUSCULAR HGB CONC 33.1 G/DL (32.0-36.0); MEAN CORPUSCULAR VOLUME 93 FL (80-99); MEAN PLATELET VOLUME 7.5 FL (6.5-10.1); MONOCYTES % (AUTO) 6.1 % (1.0-10.0); NEUTROPHILS % (AUTO) 36.4 % (45.0-75.0); PLATELET COUNT 252 K/UL (150-450); RED BLOOD COUNT 4.27 M/UL (4.20-5.40); WHITE BLOOD COUNT 5.8 K/UL (4.8-10.8)
[2017-07-05 06:54] LABS: ALANINE AMINOTRANSFERASE 17 U/L (12-78); ALBUMIN/GLOBULIN RATIO 1.2 (1.0-2.7); ANION GAP 6 mmol/L (5-15); ASPARTATE AMINO TRANSFERASE 12 U/L (15-37); CALCIUM 9.5 MG/DL (8.5-10.1); CARBON DIOXIDE 31 MMOL/L (21-32); CHLORIDE 102 MMOL/L (98-107); CREATININE 0.6 MG/DL (0.55-1.30); GLOMERULAR FILTRATION RATE > 60 mL/min (>60); MAGNESIUM 1.7 MG/DL (1.8-2.4); PHOSPHORUS 3.7 MG/DL (2.5-4.9); POTASSIUM 4.1 MMOL/L (3.5-5.1); SODIUM 138 MMOL/L (136-145); TOTAL PROTEIN 6.4 G/DL (6.4-8.2)
[2017-07-05 08:00] VITALS: BP 137/65
--- NOTE | 2017-07-05 09:43 | General Progress Note ---
Assessment/Plan Problem List: (1) Diabetes ICD Codes: E11.9 - Type 2 diabetes mellitus without complications SNOMED: 27373215 (2) Leukocytosis ICD Codes: D72.829 - Elevated white blood cell count, unspecified SNOMED: 626233221, 079974516 (3) Weakness ICD Codes: R53.1 - Weakness SNOMED: 53265255 (4) Dehydration ICD Codes: E86.0 - Dehydration SNOMED: 29741543 (5) FTT (failure to thrive) in adult ICD Codes: R62.7 - Adult failure to thrive SNOMED: 745735256 (6) Episode of generalized weakness ICD Codes: R53.1 - Weakness SNOMED: 77466032 (7) Arthritis ICD Codes: M19.90 - Unspecified osteoarthritis, unspecified site SNOMED: 4481392 Status: stable, progressing, tolerating diet Assessment/Plan ot pt diet abx cbc bmp am gi neuro f/u Subjective Constitutional: Reports: weakness Allergies: Coded Allergies: ACETAMINOPHEN (Verified Allergy, Unknown, 06/07/17) FLUPHENAZINE (Verified Allergy, Unknown, 06/07/17) HALOPERIDOL (Verified Allergy, Unknown, 06/07/17) IODINE (Verified Allergy, Unknown, 06/07/17) KETOROLAC (Verified Allergy, Unknown, 06/07/17) PENICILLINS (Verified Allergy, Unknown, 06/07/17) SULFAMETHOXAZOLE (Verified Allergy, Unknown, 06/07/17) All Systems: reviewed and negative except above Subjective poor appetitite sleepy calm Objective Last 24 Hour Vital Signs Date Time Temp Pulse Resp B/P (MAP) Pulse Ox O2 Delivery O2 Flow Rate FiO2 07/05/17 04:01 Room Air 07/05/17 04:00 98.1 47 18 137/60 94 07/05/17 00:01 Room Air 07/05/17 00:00 97.1 50 18 145/66 93 07/04/17 20:01 Room Air 07/04/17 20:00 97.5 60 18 148/64 95 07/04/17 19:16 98.4 07/04/17 16:13 98.4 65 21 139/77 92 07/04/17 11:59 97.2 67 21 149/64 93 Laboratory Tests 07/05/17 04:30: White Blood Count 5.8, Red Blood Count 4.27, Hemoglobin 13.2, Hematocrit 39.8, Mean Corpuscular Volume 93, Mean Corpuscular Hemoglobin 30.9, Mean Corpuscular Hemoglobin Concent 33.1, Red Cell Distribution Width 14.0, Platelet Count 252, Mean Platelet Volume 7.5, Neutrophils (%) (Auto) 36.4L, Lymphocytes (%) (Auto) 54.8H, Monocytes (%) (Auto) 6.1, Eosinophils (%) (Auto) 1.6, Basophils (%) (Auto ) 1.0, Sodium Level 138, Potassium Level 4.1, Chloride Level 102, Carbon Dioxide Level 31, Anion Gap 6, Blood Urea Nitrogen 6L, Creatinine 0.6, Estimat Glomerular Filtration Rate > 60, Glucose Level 86, Calcium Level 9.5, Phosphorus Level 3.7, Magnesium Level 1.7L, Total Bilirubin 0.2, Aspartate Amino Transf (AST/SGOT) 12L, Alanine Aminotransferase (ALT/SGPT) 17, Alkaline Phosphatase 43L, Total Protein 6.4, Albumin 3.5, Globulin 2.9, Albumin/Globulin Ratio 1.2 Height (Feet): 5 Height (Inches): 5.00 Weight (Pounds): 168 General Appearance: lethargic EENT: normal ENT inspection Neck: normal alignment Cardiovascular: normal peripheral pulses, normal rate, regular rhythm Respiratory/Chest: chest wall non-tender, lungs clear, normal breath sounds Abdomen: normal bowel sounds, non tender, soft Extremities: normal inspection Edema: no edema noted Arm (L), no edema noted Arm (R), no edema noted Leg (L), no edema noted Leg (R), no edema noted Pedal (L), no edema noted Pedal (R), no edema noted Generalized Neurologic: responsive, motor weakness Skin: normal pigmentation, warm/dry AYLA HOPKINS Jul 05, 2017 09:43
[2017-07-05] MEDS: Lyrica 50mg cap ORAL SCH ×3 (10:07→17:30)
[2017-07-05] MEDS: Escitalopram Oxalate 5mg tab ORAL SCH (10:07)
[2017-07-05] MEDS: Heparin 5000 units/ml inj SUBQ SCH ×2 (10:08→20:46)
[2017-07-05] MEDS: Magnesium Oxide 400mg tab ORAL SCH ×3 (10:12→17:29)
--- NOTE | 2017-07-05 10:49 | GI Progress Note ---
Assessment/Plan Problems: (1) Dysphagia ICD Codes: R13.10 - Dysphagia, unspecified SNOMED: 13900110, 791034021 (2) Weakness ICD Codes: R53.1 - Weakness SNOMED: 03449020 (3) Diabetes ICD Codes: E11.9 - Type 2 diabetes mellitus without complications SNOMED: 43854797 (4) Episode of generalized weakness ICD Codes: R53.1 - Weakness SNOMED: 75488664 (5) FTT (failure to thrive) in adult ICD Codes: R62.7 - Adult failure to thrive SNOMED: 867323024 (6) Dehydration ICD Codes: E86.0 - Dehydration SNOMED: 35898166 Status: stable Status Narrative Discussed with Dr. Mercedes. Assessment/Plan recommend ortho eval for hip pain not a candidate for PEG fu barium swallow ordered by pulm symptomatic treatment at this time. push PO ADA diet simethicone prn zofran prn collect for stool studies, cdiff if diarrhea persists H2B fu labs Subjective Subjective trying to increase appetite working with PT Objective Last 24 Hour Vital Signs Date Time Temp Pulse Resp B/P (MAP) Pulse Ox O2 Delivery O2 Flow Rate FiO2 07/05/17 08:00 97.5 49 19 137/65 93 07/05/17 04:01 Room Air 07/05/17 04:00 98.1 47 18 137/60 94 07/05/17 00:01 Room Air 07/05/17 00:00 97.1 50 18 145/66 93 07/04/17 20:01 Room Air 07/04/17 20:00 97.5 60 18 148/64 95 07/04/17 19:16 98.4 07/04/17 16:13 98.4 65 21 139/77 92 07/04/17 11:59 97.2 67 21 149/64 93 Intake and Output 07/05/17 07/06/17 19:00 07:00 Intake Total 250 ml Balance 250 ml Intake Oral 250 ml # Voids 1 Laboratory Tests Test 07/05/17 04:30 White Blood Count 5.8 K/UL (4.8-10.8) Red Blood Count 4.27 M/UL (4.20-5.40) Hemoglobin 13.2 G/DL (12.0-16.0) Hematocrit 39.8 % (37.0-47.0) Mean Corpuscular Volume 93 FL (80-99) Mean Corpuscular Hemoglobin 30.9 PG (27.0-31.0) Mean Corpuscular Hemoglobin Concent 33.1 G/DL (32.0-36.0) Red Cell Distribution Width 14.0 % (11.6-14.8) Platelet Count 252 K/UL (150-450) Mean Platelet Volume 7.5 FL (6.5-10.1) Neutrophils (%) (Auto) 36.4 % (45.0-75.0) L Lymphocytes (%) (Auto) 54.8 % (20.0-45.0) H Monocytes (%) (Auto) 6.1 % (1.0-10.0) Eosinophils (%) (Auto) 1.6 % (0.0-3.0) Basophils (%) (Auto) 1.0 % (0.0-2.0) Sodium Level 138 MMOL/L (136-145) Potassium Level 4.1 MMOL/L (3.5-5.1) Chloride Level 102 MMOL/L (98-107) Carbon Dioxide Level 31 MMOL/L (21-32) Anion Gap 6 mmol/L (5-15) Blood Urea Nitrogen 6 mg/dL (7-18) L Creatinine 0.6 MG/DL (0.55-1.30) Estimat Glomerular Filtration Rate > 60 mL/min (>60) Glucose Level 86 MG/DL (74-106) Calcium Level 9.5 MG/DL (8.5-10.1) Phosphorus Level 3.7 MG/DL (2.5-4.9) Magnesium Level 1.7 MG/DL (1.8-2.4) L Total Bilirubin 0.2 MG/DL (0.2-1.0) Aspartate Amino Transf (AST/SGOT) 12 U/L (15-37) L Alanine Aminotransferase (ALT/SGPT) 17 U/L (12-78) Alkaline Phosphatase 43 U/L (46-116) L Total Protein 6.4 G/DL (6.4-8.2) Albumin 3.5 G/DL (3.4-5.0) Globulin 2.9 g/dL Albumin/Globulin Ratio 1.2 (1.0-2.7) Height (Feet): 5 Height (Inches): 5.00 Weight (Pounds): 168 General Appearance: WD/WN, no apparent distress, alert Cardiovascular: normal rate Respiratory/Chest: normal breath sounds, no respiratory distress Abdominal Exam: normal bowel sounds, non tender, soft Extremities: normal range of motion, non-tender Paulette Shaffer N.P. Jul 05, 2017 10:48
--- NOTE | 2017-07-05 11:57 | Diagnostic Imaging Report ---
Indications: Pain Technique: Spiral images obtained through the facial bones. No IV contrast utilized. Multiplanar reconstructions were generated.Total dose length product 620 mGycm. CTDIvol(s) 28mGy. Dose reduction achieved using automated exposure control Comparison: None Findings: The nasal septum is minimally deviated to the right. Right maxillary ostium is patent. There is some mucosal thickening in the orifice of the left maxillary ostium. The ostium is probably patent but not definitively. The sinuses are otherwise clear. No evidence of acute fracture. The optic globes and retroseptal orbits are intact. The visualized intracranial structures are grossly intact. No significant soft tissue swelling. The the facial soft tissues are unremarkable. There is evidence of prior multiple dental extractions. Impression: Minimal mucosal thickening in the region of the left maxillary ostium. Left axillary ostium probably but not definitively patent No significant sinus disease otherwise No other significant abnormality No acute bony trauma The CT scanner at [facility] is accredited by the [employer] and the scans are performed using protocols designed to limit radiation exposure to as low as reasonably achievable to attain images of sufficient resolution adequate for diagnostic evaluation.
[2017-07-05 12:00] VITALS: BP 140/58
--- NOTE | 2017-07-05 15:23 | Pulmonology Progress Note ---
Assessment/Plan Problems: (1) Dysphagia (2) Weakness (3) Diabetes (4) Arthritis (5) Episode of generalized weakness Assessment/Plan facial CT reviewed, no abnormality seen tolerating diet full liquid GI following barium swallow pending symptomatic treatment Subjective ROS Limited/Unobtainable: No Interval Events: wants more pain meds Allergies: Coded Allergies: ACETAMINOPHEN (Verified Allergy, Unknown, 06/07/17) FLUPHENAZINE (Verified Allergy, Unknown, 06/07/17) HALOPERIDOL (Verified Allergy, Unknown, 06/07/17) IODINE (Verified Allergy, Unknown, 06/07/17) KETOROLAC (Verified Allergy, Unknown, 06/07/17) PENICILLINS (Verified Allergy, Unknown, 06/07/17) SULFAMETHOXAZOLE (Verified Allergy, Unknown, 06/07/17) Objective Last 24 Hour Vital Signs Date Time Temp Pulse Resp B/P (MAP) Pulse Ox O2 Delivery O2 Flow Rate FiO2 07/05/17 12:00 97.2 53 16 140/58 98 07/05/17 10:35 97.5 07/05/17 08:00 97.5 49 19 137/65 93 07/05/17 04:01 Room Air 07/05/17 04:00 98.1 47 18 137/60 94 07/05/17 00:01 Room Air 07/05/17 00:00 97.1 50 18 145/66 93 07/04/17 20:01 Room Air 07/04/17 20:00 97.5 60 18 148/64 95 07/04/17 16:13 98.4 65 21 139/77 92 Intake and Output 07/05/17 07/06/17 19:00 07:00 Intake Total 450 ml Balance 450 ml Intake Oral 450 ml # Voids 2 Objective General Appearance: WD/WN Lines, tubes and drains: peripheral, HEENT: normocephalic, atraumatic Neck: non-tender, normal alignment Respiratory/Chest: chest wall non-tender, lungs clear, normal breath sounds Breasts: no masses Cardiovascular/Chest: normal rate Abdomen: normal bowel sounds Extremities: normal range of motion Laboratory Tests 07/05/17 04:30: White Blood Count 5.8, Red Blood Count 4.27, Hemoglobin 13.2, Hematocrit 39.8, Mean Corpuscular Volume 93, Mean Corpuscular Hemoglobin 30.9, Mean Corpuscular Hemoglobin Concent 33.1, Red Cell Distribution Width 14.0, Platelet Count 252, Mean Platelet Volume 7.5, Neutrophils (%) (Auto) 36.4L, Lymphocytes (%) (Auto) 54.8H, Monocytes (%) (Auto) 6.1, Eosinophils (%) (Auto) 1.6, Basophils (%) (Auto ) 1.0, Sodium Level 138, Potassium Level 4.1, Chloride Level 102, Carbon Dioxide Level 31, Anion Gap 6, Blood Urea Nitrogen 6L, Creatinine 0.6, Estimat Glomerular Filtration Rate > 60, Glucose Level 86, Calcium Level 9.5, Phosphorus Level 3.7, Magnesium Level 1.7L, Total Bilirubin 0.2, Aspartate Amino Transf (AST/SGOT) 12L, Alanine Aminotransferase (ALT/SGPT) 17, Alkaline Phosphatase 43L, Total Protein 6.4, Albumin 3.5, Globulin 2.9, Albumin/Globulin Ratio 1.2 Current Medications Medications (Trade) Dose Ordered Sig/Olu Route PRN Reason Start Time Stop Time Status Last Admin Dose Admin Al Hydroxide/Mg Hydroxide (Mylanta II) 30 ml Q6H PRN ORAL dyspepsia 07/02/17 16:30 08/01/17 16:29 Cetylpyridinium Chloride (Cepacol) 1 lozenge Q2H PRN BEAU mouth/throat pain 07/04/17 12:15 08/03/17 12:14 07/04/17 20:32 Dextrose (Dextrose 50%) STAT PRN IV Hypoglycemia 07/02/17 16:30 08/01/17 16:29 Diazepam (Valium) 5 mg BID ORAL 07/02/17 18:00 07/09/17 17:59 07/05/17 10:07 Diphenhydramine HCl (Benadryl) 25 mg Q4H PRN IVP Itching 07/02/17 16:30 08/01/17 16:29 07/05/17 10:12 Escitalopram Oxalate (Lexapro) 5 mg DAILY ORAL 07/03/17 09:00 08/02/17 08:59 07/05/17 10:07 Famotidine (Pepcid I.v.) 20 mg Q12HR IVP 07/02/17 21:00 08/01/17 20:59 07/05/17 11:20 Heparin Sodium (Porcine) (Heparin 5000 units/ml) 5,000 units EVERY 12 HOURS SUBQ 07/02/17 21:00 08/01/17 20:59 07/05/17 10:08 Insulin Aspart (NovoLOG) BEFORE MEALS AND HS SUBQ 07/02/17 17:00 08/01/17 16:59 07/03/17 20:51 Lorazepam (Ativan 2mg/ml 1ml) 0.5 mg Q4H PRN IV For Anxiety 07/02/17 16:30 07/09/17 16:29 Magnesium Oxide (Mag-Ox 400mg) 400 mg THREE TIMES A DAY ORAL 07/05/17 10:00 07/10/17 09:59 07/05/17 13:26 Morphine Sulfate (Morphine Sulfate) 1 mg Q4H PRN IVP For Moderate to Severe Pain 07/02/17 16:30 07/09/17 16:29 07/05/17 10:06 Ondansetron HCl (Zofran) 4 mg Q6H PRN IVP Nausea & Vomiting 07/02/17 16:30 08/01/17 16:29 Polyethylene Glycol (Miralax) 17 gm HSPRN PRN ORAL Constipation 07/02/17 16:30 08/01/17 16:29 Pregabalin (Lyrica) 100 mg THREE TIMES A DAY ORAL 07/02/17 18:00 18 17:59 07/05/17 13:27 Risperidone (RisperDAL) 1 mg DAILY ORAL 07/03/17 09:00 08/02/17 08:59 07/05/17 10:07 Simethicone (Mylicon) 80 mg QIDPRN PRN ORAL GAS PAIN 07/02/17 17:30 08/01/17 17:29 Zolpidem Tartrate (Ambien) 5 mg HSPRN PRN ORAL Insomnia 07/02/17 16:30 07/09/17 16:29 CHINO HARTMAN Jul 05, 2017 15:23
[2017-07-05 16:00] VITALS: BP 141/60
[2017-07-05 20:00] VITALS: BP 174/72
--- NOTE | 2017-07-06 04:00 | Consultation ---
DATE OF CONSULTATION: 07/05/2017 PSYCHOTHERAPY CONSULTATION PROGRESS NOTE CONSULTING PHYSICIAN: Gildardo Babin M.D. TREATING ATTENDING PHYSICIAN: Selvin Harris D.O. HISTORY OF PRESENT ILLNESS: The patient is a 62-year-old female patient. The patient was initially admitted to the hospital for weakness, dehydration, and failure to thrive. She is confused and complaining generalized physical pain as well. The patient has history of anxiety and possible schizoaffective disorder according to her self-report. She was referred for psychotherapeutic services to treat her history of anxiety and irritability. This clinician assessed the patient. The patient states that she has been feeling slightly anxious and depressed. She states that she has had some pain in her body and her tooth has been hurting her. The patient states that her mood is depressed. The patient states she has history of schizoaffective disorder. The patient states she has been seeing a psychiatrist in the past and has been treated with psychotropic medication. The patient denies suicidal or homicidal thoughts of ideation. Denies any auditory or visual hallucinations at this time. The patient states that her psychotropic medications have been helping her. She is cooperative. PAST MEDICAL HISTORY: History of diabetes and encephalopathy. ALLERGIES: The patient is allergic to Tylenol, Haldol, ketorolac, penicillin, Bactrim, sulfa, and fluphenazine. SUBSTANCE ABUSE HISTORY: The patient denies history of substance abuse, however, states she does drink alcohol daily 1-2 times a day and smokes a pack of cigarettes a day. SOCIAL HISTORY: The patient is a 62-year-old female. The patient is from [facility]. Financially sustained through [facility]. Single female patient. MENTAL STATUS EXAMINATION: The patient is alert and oriented x2, person and place. Her mood is anxious. Affect is blunted. Thought process is fairly disorganized. Thought content, slightly confused. The patient has fair attention and concentration. Poor insight, judgment, and impulse control. DIAGNOSES: He has a history of schizoaffective disorder and generalized anxiety disorder. PLAN OF TREATMENT: This clinician assessed the patient, assessed the patient's mental status, addressed the patient's current complaints of anxiety and irritability, addressed the patient's . Encouraged the patient to articulate her needs utilizing positive communication and coping skills. Continue with behavioral management. This clinician has reviewed the patient's chart and discussed the treatment with staff. Gildardo Babin PsyD. DR: COURTNEY JOB#: [id number] CC:
[2017-07-06 04:50] VITALS: BP 103/49
[2017-07-06] MEDS: NovoLOG Insulin Flexpen SUBQ SCH ×3 (06:12→17:12)
[2017-07-06 06:41] LABS: BASOPHILS % (AUTO) 1.1 % (0.0-2.0); EOSINOPHILS % (AUTO) 1.3 % (0.0-3.0); LYMPHOCYTES % (AUTO) 50.5 % (20.0-45.0); MEAN CORPUSCULAR HEMOGLOBIN 32.2 PG (27.0-31.0); MEAN CORPUSCULAR HGB CONC 34.5 G/DL (32.0-36.0); MEAN CORPUSCULAR VOLUME 93 FL (80-99); MEAN PLATELET VOLUME 8.3 FL (6.5-10.1); MONOCYTES % (AUTO) 8.4 % (1.0-10.0); NEUTROPHILS % (AUTO) 38.6 % (45.0-75.0); PLATELET COUNT 264 K/UL (150-450); RED BLOOD COUNT 4.26 M/UL (4.20-5.40); RED CELL DISTRIBUTION WIDTH 13.9 % (11.6-14.8)
[2017-07-06 07:18] LABS: ANION GAP 6 mmol/L (5-15); CALCIUM 9.2 MG/DL (8.5-10.1); CARBON DIOXIDE 31 MMOL/L (21-32); CHLORIDE 102 MMOL/L (98-107); CREATININE 0.8 MG/DL (0.55-1.30); GLOMERULAR FILTRATION RATE > 60 mL/min (>60); POTASSIUM 4.1 MMOL/L (3.5-5.1); SODIUM 139 MMOL/L (136-145)
[2017-07-06 08:00] VITALS: BP 142/59
[2017-07-06] MEDS: Magnesium Oxide 400mg tab ORAL SCH ×2 (09:16→13:28)
[2017-07-06] MEDS: Escitalopram Oxalate 5mg tab ORAL SCH (09:16)
[2017-07-06] MEDS: Lyrica 50mg cap ORAL SCH ×2 (09:17→13:28)
[2017-07-06] MEDS: Heparin 5000 units/ml inj SUBQ SCH (09:18)
[2017-07-06] MEDS: DiphenhydrAMINE 50mg/ml Inj IVP PRN ×2 (10:11→14:48)
[2017-07-06] MEDS: Morphine Sulfate 2mg/ml Inj IVP PRN ×2 (10:13→14:47)
[2017-07-06 12:00] VITALS: BP 121/74
--- NOTE | 2017-07-06 13:08 | GI Progress Note ---
Assessment/Plan Problems: (1) Dysphagia ICD Codes: R13.10 - Dysphagia, unspecified SNOMED: 05287007, 431417797 (2) Weakness ICD Codes: R53.1 - Weakness SNOMED: 93644157 (3) Diabetes ICD Codes: E11.9 - Type 2 diabetes mellitus without complications SNOMED: 31404243 (4) Episode of generalized weakness ICD Codes: R53.1 - Weakness SNOMED: 34093960 (5) FTT (failure to thrive) in adult ICD Codes: R62.7 - Adult failure to thrive SNOMED: 658072413 (6) Dehydration ICD Codes: E86.0 - Dehydration SNOMED: 97769242 Status: stable Status Narrative Discussed with Dr. Mercedes. Assessment/Plan okay for DC per GI standpoint recommend ortho eval for hip pain not a candidate for PEG fu barium swallow ordered by pulm symptomatic treatment at this time. push PO ADA diet simethicone prn zofran prn collect for stool studies, cdiff if diarrhea persists H2B fu labs Subjective Subjective trying to increase appetite working with PT Objective Last 24 Hour Vital Signs Date Time Temp Pulse Resp B/P (MAP) Pulse Ox O2 Delivery O2 Flow Rate FiO2 07/06/17 12:00 97.3 72 19 121/74 95 Room Air 07/06/17 08:00 97.4 48 20 142/59 97 Room Air 07/06/17 04:50 98.1 70 18 103/49 92 07/05/17 22:22 97.2 07/05/17 20:00 98.3 74 20 174/72 92 07/05/17 16:00 97.8 61 19 141/60 95 Laboratory Tests Test 07/06/17 05:10 White Blood Count 6.0 K/UL (4.8-10.8) Red Blood Count 4.26 M/UL (4.20-5.40) Hemoglobin 13.7 G/DL (12.0-16.0) Hematocrit 39.8 % (37.0-47.0) Mean Corpuscular Volume 93 FL (80-99) Mean Corpuscular Hemoglobin 32.2 PG (27.0-31.0) H Mean Corpuscular Hemoglobin Concent 34.5 G/DL (32.0-36.0) Red Cell Distribution Width 13.9 % (11.6-14.8) Platelet Count 264 K/UL (150-450) Mean Platelet Volume 8.3 FL (6.5-10.1) Neutrophils (%) (Auto) 38.6 % (45.0-75.0) L Lymphocytes (%) (Auto) 50.5 % (20.0-45.0) H Monocytes (%) (Auto) 8.4 % (1.0-10.0) Eosinophils (%) (Auto) 1.3 % (0.0-3.0) Basophils (%) (Auto) 1.1 % (0.0-2.0) Sodium Level 139 MMOL/L (136-145) Potassium Level 4.1 MMOL/L (3.5-5.1) Chloride Level 102 MMOL/L (98-107) Carbon Dioxide Level 31 MMOL/L (21-32) Anion Gap 6 mmol/L (5-15) Blood Urea Nitrogen 7 mg/dL (7-18) Creatinine 0.8 MG/DL (0.55-1.30) Estimat Glomerular Filtration Rate > 60 mL/min (>60) Glucose Level 122 MG/DL (74-106) H Calcium Level 9.2 MG/DL (8.5-10.1) Height (Feet): 5 Height (Inches): 5.00 Weight (Pounds): 168 General Appearance: WD/WN, no apparent distress, alert Cardiovascular: normal rate Respiratory/Chest: normal breath sounds, no respiratory distress Abdominal Exam: normal bowel sounds, non tender, soft Extremities: normal range of motion, non-tender Paulette Shaffer N.P. Jul 06, 2017 13:08
--- NOTE | 2017-07-06 14:15 | General Progress Note ---
Assessment/Plan Problem List: (1) Diabetes ICD Codes: E11.9 - Type 2 diabetes mellitus without complications SNOMED: 36889536 (2) Leukocytosis ICD Codes: D72.829 - Elevated white blood cell count, unspecified SNOMED: 189354555, 075621063 (3) Weakness ICD Codes: R53.1 - Weakness SNOMED: 60947305 (4) Dehydration ICD Codes: E86.0 - Dehydration SNOMED: 73724878 (5) FTT (failure to thrive) in adult ICD Codes: R62.7 - Adult failure to thrive SNOMED: 890635141 (6) Episode of generalized weakness ICD Codes: R53.1 - Weakness SNOMED: 83212307 (7) Arthritis ICD Codes: M19.90 - Unspecified osteoarthritis, unspecified site SNOMED: 3123297 Status: stable, progressing, tolerating diet Assessment/Plan ot pt diet abx dc to snf if clear by gi neuro f/u Subjective Constitutional: Reports: weakness Allergies: Coded Allergies: ACETAMINOPHEN (Verified Allergy, Unknown, 06/07/17) FLUPHENAZINE (Verified Allergy, Unknown, 06/07/17) HALOPERIDOL (Verified Allergy, Unknown, 06/07/17) IODINE (Verified Allergy, Unknown, 06/07/17) KETOROLAC (Verified Allergy, Unknown, 06/07/17) PENICILLINS (Verified Allergy, Unknown, 06/07/17) SULFAMETHOXAZOLE (Verified Allergy, Unknown, 06/07/17) All Systems: reviewed and negative except above Subjective sleepy calm Objective Last 24 Hour Vital Signs Date Time Temp Pulse Resp B/P (MAP) Pulse Ox O2 Delivery O2 Flow Rate FiO2 07/06/17 12:00 97.3 72 19 121/74 95 Room Air 07/06/17 10:40 97.3 07/06/17 08:00 97.4 48 20 142/59 97 Room Air 07/06/17 04:50 98.1 70 18 103/49 92 07/05/17 20:00 98.3 74 20 174/72 92 07/05/17 16:00 97.8 61 19 141/60 95 Laboratory Tests 07/06/17 05:10: White Blood Count 6.0, Red Blood Count 4.26, Hemoglobin 13.7, Hematocrit 39.8, Mean Corpuscular Volume 93, Mean Corpuscular Hemoglobin 32.2H, Mean Corpuscular Hemoglobin Concent 34.5, Red Cell Distribution Width 13.9, Platelet Count 264, Mean Platelet Volume 8.3, Neutrophils (%) (Auto) 38.6L, Lymphocytes (%) (Auto) 50.5H, Monocytes (%) (Auto) 8.4, Eosinophils (%) (Auto) 1.3, Basophils (%) (Auto ) 1.1, Sodium Level 139, Potassium Level 4.1, Chloride Level 102, Carbon Dioxide Level 31, Anion Gap 6, Blood Urea Nitrogen 7, Creatinine 0.8, Estimat Glomerular Filtration Rate > 60, Glucose Level 122H, Calcium Level 9.2 Height (Feet): 5 Height (Inches): 5.00 Weight (Pounds): 168 General Appearance: alert EENT: normal ENT inspection Neck: normal alignment Cardiovascular: normal peripheral pulses, normal rate, regular rhythm Respiratory/Chest: chest wall non-tender, lungs clear, normal breath sounds Abdomen: normal bowel sounds, non tender, soft Extremities: normal inspection Edema: no edema noted Arm (L), no edema noted Arm (R), no edema noted Leg (L), no edema noted Leg (R), no edema noted Pedal (L), no edema noted Pedal (R), no edema noted Generalized Neurologic: responsive, motor weakness Skin: normal pigmentation, warm/dry AYLA HOPKINS Jul 06, 2017 14:15
--- NOTE | 2017-07-06 14:48 | Infectious Diseases Prog Note ---
Assessment/Plan Assessment/Plan A; Leukocytosis resolved Dehydration Arthritis P: observe off antibiotic Subjective ROS Limited/Unobtainable: No Constitutional: Reports: no symptoms HEENT: Reports: other - toothache Respiratory: Reports: dry cough Cardiovascular: Reports: no symptoms Gastrointestinal/Abdominal: Reports: no symptoms Genitourinary: Reports: no symptoms Allergies: Coded Allergies: ACETAMINOPHEN (Verified Allergy, Unknown, 06/07/17) FLUPHENAZINE (Verified Allergy, Unknown, 06/07/17) HALOPERIDOL (Verified Allergy, Unknown, 06/07/17) IODINE (Verified Allergy, Unknown, 06/07/17) KETOROLAC (Verified Allergy, Unknown, 06/07/17) PENICILLINS (Verified Allergy, Unknown, 06/07/17) SULFAMETHOXAZOLE (Verified Allergy, Unknown, 06/07/17) Objective Vital Signs Last 24 Hour Vital Signs Date Time Temp Pulse Resp B/P (MAP) Pulse Ox O2 Delivery O2 Flow Rate FiO2 07/06/17 12:00 97.3 72 19 121/74 95 Room Air 07/06/17 10:40 97.3 07/06/17 08:00 97.4 48 20 142/59 97 Room Air 07/06/17 04:50 98.1 70 18 103/49 92 07/05/17 20:00 98.3 74 20 174/72 92 07/05/17 16:00 97.8 61 19 141/60 95 Height (Feet): 5 Height (Inches): 5.00 Weight (Pounds): 168 General Appearance: no acute distress HEENT: other - poor dentition Respiratory/Chest: lungs clear Cardiovascular: normal rate Abdomen: soft, non tender Extremities: no edema Neurologic/Psychiatric: alert, oriented x 3, responsive Laboratory Tests Test 07/06/17 05:10 White Blood Count 6.0 K/UL (4.8-10.8) Red Blood Count 4.26 M/UL (4.20-5.40) Hemoglobin 13.7 G/DL (12.0-16.0) Hematocrit 39.8 % (37.0-47.0) Mean Corpuscular Volume 93 FL (80-99) Mean Corpuscular Hemoglobin 32.2 PG (27.0-31.0) H Mean Corpuscular Hemoglobin Concent 34.5 G/DL (32.0-36.0) Red Cell Distribution Width 13.9 % (11.6-14.8) Platelet Count 264 K/UL (150-450) Mean Platelet Volume 8.3 FL (6.5-10.1) Neutrophils (%) (Auto) 38.6 % (45.0-75.0) L Lymphocytes (%) (Auto) 50.5 % (20.0-45.0) H Monocytes (%) (Auto) 8.4 % (1.0-10.0) Eosinophils (%) (Auto) 1.3 % (0.0-3.0) Basophils (%) (Auto) 1.1 % (0.0-2.0) Sodium Level 139 MMOL/L (136-145) Potassium Level 4.1 MMOL/L (3.5-5.1) Chloride Level 102 MMOL/L (98-107) Carbon Dioxide Level 31 MMOL/L (21-32) Anion Gap 6 mmol/L (5-15) Blood Urea Nitrogen 7 mg/dL (7-18) Creatinine 0.8 MG/DL (0.55-1.30) Estimat Glomerular Filtration Rate > 60 mL/min (>60) Glucose Level 122 MG/DL (74-106) H Calcium Level 9.2 MG/DL (8.5-10.1) Current Medications Medications (Trade) Dose Ordered Sig/Olu Route PRN Reason Start Time Stop Time Status Last Admin Dose Admin Al Hydroxide/Mg Hydroxide (Mylanta II) 30 ml Q6H PRN ORAL dyspepsia 07/02/17 16:30 08/01/17 16:29 Cetylpyridinium Chloride (Cepacol) 1 lozenge Q2H PRN BEAU mouth/throat pain 07/04/17 12:15 08/03/17 12:14 07/05/17 21:51 Dextrose (Dextrose 50%) STAT PRN IV Hypoglycemia 07/02/17 16:30 08/01/17 16:29 Diazepam (Valium) 5 mg BID ORAL 07/02/17 18:00 07/09/17 17:59 07/06/17 09:16 Diphenhydramine HCl (Benadryl) 25 mg Q4H PRN IVP Itching 07/02/17 16:30 08/01/17 16:29 07/06/17 10:11 Escitalopram Oxalate (Lexapro) 5 mg DAILY ORAL 07/03/17 09:00 08/02/17 08:59 07/06/17 09:16 Famotidine (Pepcid I.v.) 20 mg Q12HR IVP 07/02/17 21:00 18 20:59 07/06/17 09:16 Heparin Sodium (Porcine) (Heparin 5000 units/ml) 5,000 units EVERY 12 HOURS SUBQ 07/02/17 21:00 08/01/17 20:59 07/06/17 09:18 Insulin Aspart (NovoLOG) BEFORE MEALS AND HS SUBQ 07/02/17 17:00 08/01/17 16:59 07/06/17 12:13 Lorazepam (Ativan 2mg/ml 1ml) 0.5 mg Q4H PRN IV For Anxiety 07/02/17 16:30 07/09/17 16:29 Magnesium Oxide (Mag-Ox 400mg) 400 mg THREE TIMES A DAY ORAL 07/05/17 10:00 07/10/17 09:59 07/06/17 13:28 Morphine Sulfate (Morphine Sulfate) 2 mg Q4H PRN IVP For Moderate to Severe Pain 07/05/17 15:30 07/12/17 15:29 07/06/17 10:13 Ondansetron HCl (Zofran) 4 mg Q6H PRN IVP Nausea & Vomiting 07/02/17 16:30 08/01/17 16:29 Polyethylene Glycol (Miralax) 17 gm HSPRN PRN ORAL Constipation 07/02/17 16:30 08/01/17 16:29 Pregabalin (Lyrica) 100 mg THREE TIMES A DAY ORAL 07/02/17 18:00 08/01/17 17:59 07/06/17 13:28 Risperidone (RisperDAL) 1 mg DAILY ORAL 07/03/17 09:00 08/02/17 08:59 07/06/17 09:16 Simethicone (Mylicon) 80 mg QIDPRN PRN ORAL GAS PAIN 07/02/17 17:30 08/01/17 17:29 Zolpidem Tartrate (Ambien) 5 mg HSPRN PRN ORAL Insomnia 07/02/17 16:30 07/09/17 16:29 GAYLE HINKLE Jul 06, 2017 14:48
[2017-07-06 16:11] VITALS: BP 123/78
--- NOTE | 2017-07-06 17:24 | Pulmonology Progress Note ---
Assessment/Plan Problems: (1) Dysphagia (2) Weakness (3) Diabetes (4) Arthritis (5) Episode of generalized weakness Assessment/Plan no new complains tolerating diet full liquid GI following barium swallow pending symptomatic treatment dc planning back to [facility] Subjective ROS Limited/Unobtainable: No Constitutional: Reports: no symptoms HEENT: Repors: no symptoms Allergies: Coded Allergies: ACETAMINOPHEN (Verified Allergy, Unknown, 06/07/17) FLUPHENAZINE (Verified Allergy, Unknown, 06/07/17) HALOPERIDOL (Verified Allergy, Unknown, 06/07/17) IODINE (Verified Allergy, Unknown, 06/07/17) KETOROLAC (Verified Allergy, Unknown, 06/07/17) PENICILLINS (Verified Allergy, Unknown, 06/07/17) SULFAMETHOXAZOLE (Verified Allergy, Unknown, 06/07/17) Objective Last 24 Hour Vital Signs Date Time Temp Pulse Resp B/P (MAP) Pulse Ox O2 Delivery O2 Flow Rate FiO2 07/06/17 16:11 98.3 81 20 123/78 99 07/06/17 15:15 98.3 07/06/17 12:00 97.3 72 19 121/74 95 Room Air 07/06/17 08:00 97.4 48 20 142/59 97 Room Air 07/06/17 04:50 98.1 70 18 103/49 92 07/05/17 20:00 98.3 74 20 174/72 92 Intake and Output 07/06/17 07/07/17 19:00 07:00 Intake Total 480 ml Balance 480 ml Intake Oral 480 ml Objective General Appearance: WD/WN Lines, tubes and drains: peripheral, HEENT: normocephalic, atraumatic Neck: non-tender, normal alignment Respiratory/Chest: chest wall non-tender, lungs clear, normal breath sounds Breasts: no masses Cardiovascular/Chest: normal rate Abdomen: normal bowel sounds Extremities: normal range of motion Laboratory Tests 07/06/17 05:10: White Blood Count 6.0, Red Blood Count 4.26, Hemoglobin 13.7, Hematocrit 39.8, Mean Corpuscular Volume 93, Mean Corpuscular Hemoglobin 32.2H, Mean Corpuscular Hemoglobin Concent 34.5, Red Cell Distribution Width 13.9, Platelet Count 264, Mean Platelet Volume 8.3, Neutrophils (%) (Auto) 38.6L, Lymphocytes (%) (Auto) 50.5H, Monocytes (%) (Auto) 8.4, Eosinophils (%) (Auto) 1.3, Basophils (%) (Auto ) 1.1, Sodium Level 139, Potassium Level 4.1, Chloride Level 102, Carbon Dioxide Level 31, Anion Gap 6, Blood Urea Nitrogen 7, Creatinine 0.8, Estimat Glomerular Filtration Rate > 60, Glucose Level 122H, Calcium Level 9.2 Current Medications Medications (Trade) Dose Ordered Sig/Olu Route PRN Reason Start Time Stop Time Status Last Admin Dose Admin Al Hydroxide/Mg Hydroxide (Mylanta II) 30 ml Q6H PRN ORAL dyspepsia 07/02/17 16:30 08/01/17 16:29 Cetylpyridinium Chloride (Cepacol) 1 lozenge Q2H PRN BEAU mouth/throat pain 07/04/17 12:15 08/03/17 12:14 07/05/17 21:51 Dextrose (Dextrose 50%) STAT PRN IV Hypoglycemia 07/02/17 16:30 08/01/17 16:29 Diazepam (Valium) 5 mg BID ORAL 07/02/17 18:00 07/09/17 17:59 07/06/17 09:16 Diphenhydramine HCl (Benadryl) 25 mg Q4H PRN IVP Itching 07/02/17 16:30 08/01/17 16:29 07/06/17 14:48 Escitalopram Oxalate (Lexapro) 5 mg DAILY ORAL 07/03/17 09:00 08/02/17 08:59 07/06/17 09:16 Famotidine (Pepcid I.v.) 20 mg Q12HR IVP 07/02/17 21:00 08/01/17 20:59 07/06/17 09:16 Heparin Sodium (Porcine) (Heparin 5000 units/ml) 5,000 units EVERY 12 HOURS SUBQ 07/02/17 21:00 08/01/17 20:59 07/06/17 09:18 Insulin Aspart (NovoLOG) BEFORE MEALS AND HS SUBQ 07/02/17 17:00 08/01/17 16:59 07/06/17 17:12 Lorazepam (Ativan 2mg/ml 1ml) 0.5 mg Q4H PRN IV For Anxiety 07/02/17 16:30 07/09/17 16:29 Magnesium Oxide (Mag-Ox 400mg) 400 mg THREE TIMES A DAY ORAL 07/05/17 10:00 07/10/17 09:59 07/06/17 13:28 Morphine Sulfate (Morphine Sulfate) 2 mg Q4H PRN IVP For Moderate to Severe Pain 07/05/17 15:30 07/12/17 15:29 07/06/17 14:47 Ondansetron HCl (Zofran) 4 mg Q6H PRN IVP Nausea & Vomiting 07/02/17 16:30 08/01/17 16:29 Polyethylene Glycol (Miralax) 17 gm HSPRN PRN ORAL Constipation 07/02/17 16:30 08/01/17 16:29 Pregabalin (Lyrica) 100 mg THREE TIMES A DAY ORAL 07/02/17 18:00 08/01/17 17:59 07/06/17 13:28 Risperidone (RisperDAL) 1 mg DAILY ORAL 07/03/17 09:00 08/02/17 08:59 07/06/17 09:16 Simethicone (Mylicon) 80 mg QIDPRN PRN ORAL GAS PAIN 07/02/17 17:30 08/01/17 17:29 Zolpidem Tartrate (Ambien) 5 mg HSPRN PRN ORAL Insomnia 07/02/17 16:30 07/09/17 16:29 CHINO HARTMAN Jul 06, 2017 17:24
--- NOTE | 2017-07-08 11:01 | Diagnostic Imaging Report ---
Indication: DYSPHAGIA sensation of food getting stuck Technique: Patient ingested effervescent granules, oral thickened and liquid barium, and rapid sequence spot images and static overhead images obtained. Total fluoroscopy time 1.2 minutes. Total dose area product 269 dGycm2 Comparison: none Findings: There is considerable esophageal dysmotility, with tertiary contractions and a slight degree of to-and-fro movement of ingested contrast. No evidence of stricture, ulceration, or filling defect. No hiatal hernia demonstrated. No gastroesophageal reflux was observed under fluoroscopy. A limited view of the stomach is unremarkable. 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 Negative for evidence of anatomical obstruction
--- NOTE | 2017-07-08 11:04 | Cardiology Report ---
APPROVED REPORT EKG Measurement Heart [id number] CO 184P46 [id number] Normal sinus rhythm Right bundle branch block Abnormal ECG
--- NOTE | 2017-07-08 12:54 | Discharge Summary ---
Discharge Summary Hospital Course Date of Admission Jul 02, 2017 at 12:50 Date of Discharge Jul 06, 2017 at 18:00 Admitting Diagnosis WEAKNESS, DEHYDRATION, FAILURE TO THRIVE SU Vandana Serrato is a 62 year old female who was admitted on Jul 02, 2017 at 12:50 for Weakness, Dehydration,Failure To Thrive Hospital Course [id number] Discharge Discharge Disposition Patient was discharged to SNF/Subacute Facility(03) Discharge Diagnoses: Ani Summers NP Jul 08, 2017 12:54
--- NOTE | 2017-07-09 11:31 | Discharge Summary 2 SIG ---
DATE OF ADMISSION: 07/02/2017 DATE OF DISCHARGE: 07/06/2017 CONSULTANTS: 1. Santy Arrington M.D. 2. Naldo Grove M.D. 3. Ayush Rao M.D. 4. Royal Mercedes M.D. BRIEF HOSPITAL COURSE: The patient is a 62-year-old female from [facility], presented to ED for failure to thrive with increased confusion and pain. The patient from the [place] [facility] was noted to be not eating for several days and has lost weight and was feeling weak. She had generalized pain all over her body secondary to fall a day prior to coming into the hospital. She has history of diabetes mellitus, COPD, arthritis, and psychiatric disorder. On evaluation at ED, blood work showed no leukocytosis. Sodium was noted to be 128. Troponin was negative. She had an EKG done that showed normal sinus rhythm with right bundle-branch block. There were no ischemic changes noted. Chest x-ray done showed no acute process. No evidence of acute cardiopulmonary disease. Head CT showed no evidence of acute intracranial hemorrhage, mass effect, or cortical edema. She was admitted to medical floor for evaluation of generalized weakness and failure to thrive. She underwent neurological evaluation. Sinemet was placed on hold as there was no clear evidence of Parkinson's disease. She was given PT and OT for mobility protocol. She underwent psychiatric evaluation. The patient has history of schizoaffective disorder and generalized anxiety disorder. She was given Risperdal 1 mg daily and Lexapro 5 mg daily. GI was consulted. The patient had epigastric tenderness and nausea without vomiting. She is not a candidate for PEG placement. She was encouraged p.o. diet and was given H2 blockers, simethicone, and Zofran p.r.n. She had a barium study done that showed laryngeal dysmotility, which is likely age related and negative for evidence of anatomical obstruction. A maxillofacial CT showed minimal mucosal thickening in the region of left maxillary ostium. Left maxillary ostium probably not definitively patent. There was no significant sinus disease. No other significant abnormality and no acute bony trauma noted. She was tolerating full liquid. She had episodes of leukocytosis, however, no signs of infection. She was observed off antibiotic treatment. Leukocytosis eventually resolved. She was then discharged to [facility]. FINAL DIAGNOSES: 1. Dysphagia. 2. Generalized weakness. 3. Diabetes mellitus. 4. Arthritis. 5. Parotitis. 6. Leukocytosis. 7. Schizoaffective disorder. 8. Generalized anxiety disorder. DISCHARGE DISPOSITION: The patient was discharged back to SNF. DISCHARGE MEDICATIONS: Refer to medication list. Selvin Harris D.O. I have been assigned to dictate discharge summary on this account and I was not involved in the patient's management. Ani Summers N.P. DR: MARKEL JOB#: [id number] CC: ALAN
== END 2017-07-06 18:00 | DRG 392 ==
LOC: EDBD 11:55 → EDUNIT# 11:55 → EMR 12:30 → 3E 12:50 → EDBEDREQ 13:08
DX: R13.10 Dysphagia, unspecified (principal); E11.42 Type 2 diabetes mellitus with diabetic polyneuropathy; F25.9 Schizoaffective disorder, unspecified; R62.7 Adult failure to thrive; E86.0 Dehydration; R53.1 Weakness; M19.90 Unspecified osteoarthritis, unspecified site; F41.1 Generalized anxiety disorder; K11.20 Sialoadenitis, unspecified; Z88.6 Allergy status to analgesic agent; Z88.0 Allergy status to penicillin; Z88.2 Allergy status to sulfonamides; Z88.8 Allergy status to other drugs, medicaments and biological substances; R26.89 Other abnormalities of gait and mobility; J44.9 Chronic obstructive pulmonary disease, unspecified
CPT/HCPCS: 36415; 70450; 70486; 71010; 74220; 80048; 80053; 80061; 81003; 82550; 82553; 82962; 83735; 84100; 84484; 85007; 85025; 87081; 93005; 97803; 99285; J1815